=== PATIENT | female | born 1950 | race Caucasian/White ===

== ENCOUNTER 2020-09-01 08:26 | Inpatient (IN) ==
[2020-09-01] MEDS ORDERED: MIDAZOLAM HCL 1 MG/ML 2ML VIAL ONE (08:31)
[2020-09-01] MEDS ORDERED: niCARdipine HCL INJ 2.5 MG/ML 10 ML AMP ONE (08:31)
[2020-09-01] MEDS ORDERED: HEPARIN (PORCINE) 1000 UNIT/ML 10 ML (CATH LAB USE ONLY) ONE (08:31)
[2020-09-01] MEDS ORDERED: NITROGLYCERIN/D5W 100MCG/ML 20ML SYR ONE (08:32)
[2020-09-01] MEDS ORDERED: fentaNYL citrate 100 MCG/2 ML VIAL ONE (08:32)
[2020-09-01] MEDS ORDERED: ATROPINE SULFATE 0.1 MG/ML 10ML SYR IV ONE (08:36)
--- NOTE | 2020-09-01 08:49 | Pre Anesthesia Assessment ---
Date of Service September 01, 2020 Pre Sedation Assessment Vital Signs Temp Pulse Resp BP Pulse Ox 09/01/20 08:34 100 09/01/20 08:32 100 09/01/20 08:22 98.2 F 119 H 20 146/107 H 100 Cardiovascular RRR, no murmur, no edema Respiratory normal respiratory effort, lungs clear to auscultation Pre-Sedation Airway Assessment Smoking Status: Former smoker Hx Sleep Apnea: No Hx Difficult Intubation: No Short, Thick Neck: No Thyromental Distance: > or= 3.5 Finger Breadths Oral Cavity: + WNL Mallampati Class: III ASA: ASA3 Procedure Planning Contraindications for Sedation: none Current Medications Reviewed: Yes Notes The planned sedation has been discussed with the patient. Informed Consent was obtained. I have identified the patient, determined the appropriateness of sedation and have assessed the patient immediately prior to the procedure. All medicine(s) and interventions are by my order.
--- NOTE | 2020-09-01 08:53 | Cardiology Consultation ---
Date of Consultation September 01, 2020 Assessment & Plan (1) ACS (acute coronary syndrome): Presentation concerning for ACS with transient inferior ST elevations and recommend proceeding with urgent cardiac catheterization and likely primary PCI. No apparent contraindications to procedure. Discussed risks, benefits, alternatives of procedure with patient and they are willing to proceed. Further recommendations pending findings of coronary angiography. History of Present Illness History of Present Illness 70-year-old woman here with chest tightness and ECG showing transient inferior ST elevation. Patient seen emergently in the ED after heart alert activated en route. Past cardiac history remarkable for recently diagnosed postop atrial fibrillation, currently on Eliquis. Cardiac risk factors include hypertension, tobacco abuse. Recently admitted to [facility] after a fall in the setting of longstanding issues with vertigo. Underwent left hip fracture repair 2 weeks ago. Currently admitted at [facility] for rehab. Yesterday with rehab developed chest tightness which resolved overnight. This morning again had chest tightness and was noted to be in A. fib with RVR to the 100s to 110s. Initial ECG on arrival with EMS showed inferior ST elevations. On subsequent ECGs ST elevations have resolved. Patient with minimal chest discomfort on arrival, hemodynamically stable. Converted to sinus rhythm in ED. Allergies Allergy/AdvReac Type Severity Reaction Status Date / Time No Known Allergies Allergy Unverified 09/01/20 08:43 Home Medications Medication Instructions Recorded Confirmed Type apixaban 5 mg PO BID 09/01/20 09/01/20 History cholecalciferol (vitamin D3) 50 mcg PO QAM 09/01/20 09/01/20 History [Vitamin D3] cyclobenzaprine 5 mg PO TID PRN 09/01/20 09/01/20 History diltiazem HCl 360 mg PO QAM 09/01/20 09/01/20 History docusate sodium 100 mg PO BID 09/01/20 09/01/20 History folic acid 1 mg PO QAM 09/01/20 09/01/20 History hydrocodone-acetaminophen 1 tab PO Q4H PRN 09/01/20 09/01/20 History lidocaine [Lidoderm] 2 patch TOPICAL QAM 09/01/20 09/01/20 History lorazepam 1 mg PO HS PRN 09/01/20 09/01/20 History losartan 100 mg PO QAM 09/01/20 09/01/20 History meclizine 25 mg PO TID 09/01/20 09/01/20 History metoprolol tartrate 75 mg PO Q12H 09/01/20 09/01/20 History multivitamin with minerals 1 tab PO QAM 09/01/20 09/01/20 History naloxone 4 mg INTRANASAL UD 09/01/20 09/01/20 History nicotine 1 patch TRANSDERMAL QAM 09/01/20 09/01/20 History omega 2-gob-pqw-fish oil [Fish Oil] 1 cap PO TID 09/01/20 09/01/20 History pantoprazole 40 mg PO DAILYBB 09/01/20 09/01/20 History thiamine HCl (vitamin B1) 100 mg PO QAM 09/01/20 09/01/20 History urea 1 packet PO QAM 09/01/20 09/01/20 History Patient History Social History Smoking Status: Former smoker Feels Safe at Home: Yes Review of Systems Review of Systems: All systems reviewed & are unremarkable except as noted in HPI & below Physical Exam Physical Exam: General: Comfortable HEENT: Sclerae anicteric, Mask in place Lungs: Clear to auscultation bilaterally Cardiac: Regular rate and rhythm, no murmurs Vascular: 2+ radial Abdomen: Soft, nontender Extremities: Well perfused, trace bilateral edema Neuro: Nonfocal Psych: Alert orient x3, normal affect and mood Results & Data ([facility]) Vital Signs (Past 12 Hours) Vital Signs Temp Pulse Resp BP Pulse Ox 09/01/20 08:34 100 09/01/20 08:32 100 09/01/20 08:22 98.2 F 119 H 20 146/107 H 100 PG Care Time/CCT Total # of Minutes Spent Total Time Spent with Patient: Total time spent is greater than 50% in coordination of care (as documented) at patient's floor/unit and/or counseling patient: Coding Level of Care Code 92657 Initial Inpt Care Lvl 3 Diagnoses ACS (acute coronary syndrome) I24.9
[2020-09-01 08:58] LABS: Basophils # (auto) 0.02 K/uL (0-0.2); Basophils % (auto) 0.3 %; Eosinophils # (auto) 0.06 K/uL (0-0.5); Eosinophils % (auto) 0.8 %; Hematocrit (blood only) 30.6 % (37-47); Hemoglobin 10.6 g/dL (12.0-16.0); Immature Granulocytes # (auto) 0.01 K/uL (0.00-0.02); Immature Granulocytes % (auto) 0.1 %; Lymphocytes # (auto) 1.08 K/uL (1.2-3.4); Lymphocytes % (auto) 13.7 %; Mean Corpuscular Hemoglobin 35.1 pg (25-34); Mean Corpuscular Hgb Conc 34.6 g/dL (32-36); Mean Corpuscular Volume 101.3 fL (80-100); Mean Platelet Volume 8.6 fL (7.4-10.4); Monocytes # (auto) 0.67 K/uL (0.11-0.59); Monocytes % (auto) 8.5 %; Neutrophils # (auto) 6.02 K/uL (1.4-6.5); Neutrophils % (auto) 76.6 %; Platelet Count 588 K/uL (130-400); RDW Coefficient of Variation 13.6 % (11.5-14.5); RDW Standard Deviation 50.6 fL (36.4-46.3); Red Blood Count 3.02 M/uL (4.2-5.4); White Blood Count 7.86 K/uL (4.8-10.8)
[2020-09-01 09:08] LABS: INR 1.1 (0.9-1.1); Partial Thromboplastin Time 26.5 Seconds (21.0-31.0); Prothrombin Time 10.7 Seconds (9.0-12.0)
[2020-09-01 09:18] LABS: Albumin Level 3.5 gm/dl (3.4-5.0); BUN Creatinine Ratio 24.2 (10-20); Calcium 9.7 mg/dl (8.5-10.1); Est GFR (African American) 77.2; Est GFR (Non-African American) 66.6; Magnesium 1.6 mg/dl (1.8-2.4); Potassium 4.1 mmol/L (3.5-5.1)
[2020-09-01] MEDS ORDERED: CLOPIDOGREL BISULFATE 300 MG TAB ONE (09:21)
[2020-09-01] MEDS ORDERED: ACETAMINOPHEN 325 MG TAB PO PRN (09:34)
[2020-09-01] MEDS ORDERED: ONDANSETRON INJ 2 MG/ML 2 ML VIAL IV PRN (09:34)
[2020-09-01] MEDS ORDERED: NITROGLYCERIN SL 0.4 MG/TAB TAB SL PRN (09:34)
[2020-09-01 09:44] LABS: Albumin Globulin Ratio 0.8 (0.9-2); Bilirubin,Total 1.1 mg/dl (0.2-1); Creatine Kinase MB 5.6 ng/ml (0.5-3.6); Globulin 4.2 gm/dl (2.5-4.0); Thyroid Stimulating Hormone 1.32 uIu/ml (0.300-4.500); Total Protein 7.7 gm/dl (6.4-8.2); Troponin I 1.35 ng/ml (0-0.045)
[2020-09-01] MEDS ORDERED: SODIUM CHLORIDE 0.9% 1000ML 1,000 ML IV SCH (09:45)
--- NOTE | 2020-09-01 10:04 | Post Anesthesia Assessment ---
Date of Service September 01, 2020 Post Sedation Assessment Vital Signs Temp Pulse Pulse Resp BP BP Pulse Ox 09/01/20 09:36 65 16 150/105 H 98 09/01/20 08:34 100 09/01/20 08:32 100 09/01/20 08:22 98.2 F 119 H 20 146/107 H 100 Recovery Score Activity: Moves 4 extremities Respiration: Deep Breath/Cough Circulation: +/-20% PreAnes Value Consciousness: Fully Awake Oxygen Saturation: > 92% On Room Air Post Anesthesia Score: 10 Discharge Sedation Level of Care: Fast Track Phase II Post Sedation Plan On clinical assessment, the patient appears to have tolerated the sedation without complications. Patient is recovering as anticipated. Patient will continue to be monitored by nursing and may be discharged when sedation discharge criteria are met per below protocol. Upon Completions of procedure up to 15 minutes continue every 5 minute vital signs and the P.A.R. score; then discharge to a Phase I or Fast Track to Phase II per the following guidelines: * Discharge Patient to appropriate Phase II area if PAR is 8 or greater or return to pre- procedure baseline. The post - procedure orders will be as directed. * If PAR score is less than 8 or not return to pre-procedure baseline then patient will follow Phase I monitoring till PAR is reached for Phase II. The Phase I may be done in procedure room or may call to secure a Phase I area. * If naloxone or flumazenil are used for reversal, hold in Phase I for continued monitoring from when last reversal dose was given for a minimum of 60 minutes or longer pending the nurse and/or physician discretion of patient condition before discharge to Phase II. Please call the Sedation Physician to re-evaluate and complete post-note for discharge to Phase II area. Do NOT discharge from procedure sedation or Phase 1 until post- sedation evaluation note is complete by procedure /sedation MD Sedation Discharge Instructions to be given to the patient at discharge to home.
--- NOTE | 2020-09-01 10:14 | History & Physical Report ---
Date of Service September 01, 2020 Assessment & Plan (1) ACS (acute coronary syndrome): This is a 70yo F with a PMH of HTN, paroxysmal A Fib, vertigo, chronic hyponatremia, recent fall with hip fracture s/p repair and other medical problems listed below who was brought in from [facility] as a heart alert and is s/p stent to mid-RCA. Heart alert with transient inferior ST elevations who is s/p single DEX to mid- RCA by Dr. Ritter In PCU for continued monitoring after procedure Loaded with clopidogrel 600 mg in Field Aide Recommendations per Dr. Ritter * Continue triple therapy with aspirin, clopidogrel, apixaban for 1 week then dual therapy with clopidogrel, apixaban for at least 1 year * Trend troponins until peak, Check Echo * Uptitrate beta-christel/ARB as BP allows * High-dose statin * Consult cardiac Rehab Planning to establish with [facility] cardiology prior to this event - consult placed (2) Paroxysmal A-fib: Developed in postoperative setting after hip fracture repair 2 weeks ago Given additional 75mg of PO Lopressor post stent placement by Dr. Cullen Appreciate further recommendations for medication mgmt (3) Chronic hyponatremia: Sodium at baseline 129. Continue to monitor with daily BMP (4) HTN (hypertension): Normotensive. Continue Lopressor, losartan (5) Hip fracture requiring operative repair: Recent surgical repair at [facility] 2 weeks ago Fall precautions Continue Flexeril, [place], Lidoderm patch PT/OT (6) Vertigo: Continue Metclizine Fall precautions DVT Ppx: Eliquis Code status: FULL PCP: Jaimie Dispo: Observation PCU. Discharge planning ordered Patient seen in collaboration with Dr. Pan. Please see addendum. History of Present Illness Chief Complaint: chest pain Primary Care Provider: [facility] This is a 70yo F with a PMH of HTN, paroxysmal A Fib, vertigo, chronic hyponatremia, recent fall with hip fracture s/p repair and other medical problems listed below who was brought in from [facility] as a HEART ALERT. Was recently admitted to [facility] 2 weeks ago after a fall resulting in left hip fracture s/p surgical repair. Was subsequently admitted to [facility] for rehab and has been participating in rehab. Developed chest pain yesterday during rehab that resolved overnight. Had chest tightness again this morning and EKG showed A fib with RVR in 110s. EMS was called and initial ECG revealed inferior ST elevations that resolved on subsequent ECGs. A fib had spontaneously resolved while in ED. Was taken to cardiac equipment operator/laborer as hear alert. Dr. Ritter performed PCI with single stent to mid-RCA lesion. Currently, patient is feeling much better.No lightheadedness or vertigo. Denies any chest pain, SOB, nausea or vomiting. No fever, chills, headache, abdominal pain, dysuria, diarrhea or constipation. Has not smoked for past 2 weeks or co nsumed any alcohol. Allergies Allergy/AdvReac Type Severity Reaction Status Date / Time No Known Allergies Allergy Unverified 09/01/20 08:43 Home Medications Medication Instructions Recorded Confirmed Type apixaban 5 mg PO BID 09/01/20 09/01/20 History cholecalciferol (vitamin D3) 50 mcg PO QAM 09/01/20 09/01/20 History [Vitamin D3] cyclobenzaprine 5 mg PO TID PRN 09/01/20 09/01/20 History diltiazem HCl 360 mg PO QAM 09/01/20 09/01/20 History docusate sodium 100 mg PO BID 09/01/20 09/01/20 History folic acid 1 mg PO QAM 09/01/20 09/01/20 History hydrocodone-acetaminophen 1 tab PO Q4H PRN 09/01/20 09/01/20 History lidocaine [Lidoderm] 2 patch TOPICAL QAM 09/01/20 09/01/20 History lorazepam 1 mg PO HS PRN 09/01/20 09/01/20 History losartan 100 mg PO QAM 09/01/20 09/01/20 History meclizine 25 mg PO TID 09/01/20 09/01/20 History metoprolol tartrate 75 mg PO Q12H 09/01/20 09/01/20 History multivitamin with minerals 1 tab PO QAM 09/01/20 09/01/20 History naloxone 4 mg INTRANASAL UD 09/01/20 09/01/20 History nicotine 1 patch TRANSDERMAL QAM 09/01/20 09/01/20 History omega 5-nrh-hfd-fish oil [Fish Oil] 1 cap PO TID 09/01/20 09/01/20 History pantoprazole 40 mg PO DAILYBB 09/01/20 09/01/20 History thiamine HCl (vitamin B1) 100 mg PO QAM 09/01/20 09/01/20 History urea 1 packet PO QAM 09/01/20 09/01/20 History Past Med/Surg History Medical History Chronic hyponatremia Hip fracture requiring operative repair HTN (hypertension) Paroxysmal A-fib Vertigo Surgical History Closed hip fracture requiring operative repair S/P cholecystectomy Family History Other Hypertension Social History Smoking Status: Former smoker Smoking End Date: 08/14/2020; Hx Alcohol Use: Yes Alcohol type: wine Alcohol Intake Frequency: 4 or More x per/Week Hx Substance Use: No Preferred Language: Thai Communication Ability: Effective Epidemiology Investigator Required: No Beliefs That Will Affect Care: None Current Living Situation: Rehab Current Living Situation Comment: Recent orthopedic insult Feels Safe at Home: Yes Safety Concerns: Feels Safe At This Time Review of Systems Review of Systems: At least ten systems reviewed and negative except as noted in the HPI. Physical Exam Physical Exam: Please see Dr. Pan's addendum for physical exam details. Results & Data Results & Data ([facility]) Vital Signs (Past 12 Hours) Vital Signs Temp Pulse Pulse Resp BP BP Pulse Ox 09/01/20 09:36 65 16 150/105 H 98 09/01/20 08:34 100 09/01/20 08:32 100 09/01/20 08:22 36.8 C 119 H 20 146/107 H 100 Laboratory Results Short CBC 09/01/20 Range/Units 08:34 WBC 7.86 (4.8-10.8) K/uL Hgb 10.6 L (12.0-16.0) g/dL Hct 30.6 L (37-47) % Plt Count 588 H (130-400) K/uL BMP 09/01/20 08:34 Sodium 129 L Potassium 4.1 Chloride 98 Carbon Dioxide 24 BUN 22 H Creatinine 0.89 Glucose 107 H Calcium 9.7 Cardiac Enzymes 09/01/20 Range/Units 08:34 Total Creatine Kinase 127 (26-192) U/L CK-MB (CK-2) 5.6 H (0.5-3.6) ng/ml Troponin I 1.350 H* (0-0.045) ng/ml Liver Function 09/01/20 Range/Units 08:34 Total Bilirubin 1.1 H (0.2-1) mg/dl AST 33 (15-37) U/L ALT 24 (12-78) U/L Alkaline Phosphatase 91 (45-117) U/L Albumin 3.5 (3.4-5.0) gm/dl Code Status & VTE Plan VTE Prophylaxis Plan VTE Prophylaxis will be ordered: Yes Supervising Physician Co-Signing Physician Notes History and physical exam performed by me, detailed by Natacha Chawla PA-C I am familiar with the patient who is a 70-year-old woman with history of hypertension, vertigo, chronic hyponatremia who recently had a fall with left hip fracture and was managed by me at [facility] and discharged to rehab. She presents today from [facility] rehab after developing chest pain initially yesterday with during rehab that lasted a few minutes described as chest tightness and another episode this during which she was evaluated by the physician at the rehab EKG was reported to be showing A. fib and transient inferior ST elevation. Patient was brought to the ER as a heart alert. She was taken to the Field Aide emergently and underwent coronary angiography which showed a high-grade mid RCA stenosis treated with drug-eluting stent. At the time of evaluation, patient had no complaints of chest pain or shortness of breath -ACS s/p RCA ROSALVA -Paroxysmal Afib -Chronic hyponatremia [place] Calciner recommendations appreciated. Discussed with income tax administrator Dr. Cullen. We will continue aspirin, Plavix and apixaban for now with plan to discontinue aspirin in 2 to 4 weeks. Patient is recently diagnosed of paroxysmal A. fib during last hospitalization at [facility] when she was started on apixaban and still has Zio patch. We will continue anticoagulation and patient will need to follow-up with cardiology outpatient to assess Zio patch/A. fib burden. We will continue to optimize meds per income tax administrator recommendation during hospitalization Check A1c and lipid contour sander sodium Continue fluid restriction 1500 cc per 24 hours and po daily urea sodium Other plans as detailed above
--- NOTE | 2020-09-01 10:15 | Cardiac Catheterization ---
[facility] Data: Divorce Attorney Cardiac Status Clinical evaluation leading to the procedure CAD Presenation: Non STEMI Anginal Classification: CCS IV Heart Failure: No Cardiogenic Shock within 24 Hours: No Cardiac Arrest within 24 Hours: No Imaging Studies Past 6 Months: Yes Stress Studies Past 6 Months: No Diagnostic Physicians Name: Garrick Ritter MD Status: Emergency Closure Device Percutaneous Entry Location: Radial Closure Device: Radial Band Recommendations: PCI without planned CABG PCI Indication: Immediate PCI for STEMI First Noted: First EKG Lesion Segment Name: Mid RCA Culprit Artery: Yes Stenosis Prior to Rx (%): 90 Chronic Total Occlusion: No IVUS: No Pre-Procedure ARMANDO Flow: 3 Previously Treated Lesion: No Lesion Complexity: Non-High/Non-C Lesion Length (mm): 20 Thrombus Present: Yes Bifurcation Lesion: No Guidewire Across Lesion: Stenosis Post-Procedure (%): 0 Post-Procedure ARMANDO Flow: 3 Devices(s) Deployed: Yes Yes Intraprocedure Events Significant Disection: No Perforation: No Cardiac Cath Procedure Full Procedure Date September 01, 2020 Pre-Procedure Diagnosis Pre-Procedure Diagnosis: STEMI AUC Score AUC Score: 9 Post-Procedure Diagnosis Post-Procedure Diagnosis: Severe CAD, Successful PCI and Normal Intracardiac Pressures Procedure(s) Performed Procedure(s) Performed: Coronary Angiography, Left Heart Cath and Drug Eluting Stent Field Captain Garrick Ritter MD Time Clock Repairer(s) Dread Estimated Blood Loss Estimated Blood Loss: 10 Medication(s) Medication(s): Clopidogrel, Fentanyl, Heparin, Lidocaine 1%, Nicardipine and Versed Summary of Findings Indication: STEMI/Heart Alert Access: 6Fr right radial artery Catheters: [place], JR4 guide, pigtail Findings: LM -normal caliber, luminal irregularities LAD -medium caliber, calcified, 30% mid segment disease, distal vessel wraps around apex without significant disease. Medium caliber D1 with 80% ostial stenosis Circumflex -small caliber, angulated takeoff, no significant disease RCA -dominant, large caliber vessel, 90% acute mid RCA stenosis. Distal vessel without significant disease. LVEDP -14 -- PCI -- Antithrombotic therapy: Heparin, clopidogrel Procedure: RCA cannulated with JR4 guide BMW wire passed across lesion into distal vessel Mid RCA lesion predilated with 3.0 compliant balloon Dilated lesion stented with 3.5 x 28 mm Xience drug-eluting stent Stent post-dilated with 4.0 noncompliant balloon Post procedure ARMANDO 3 flow, stent well expanded with minimal residual stenosis and no apparent cardiac complications. Arterial Closure: TR band Summary: 1. High risk NSTEMI with transient inferior ST elevations -- 90% acute mid RCA stenosis 2. Nonculprit single-vessel coronary artery disease -30 to 40% mid LAD, 80% ostial D1 3. Normal intracardiac filling pressure 4. Successful PCI of mid RCA with single drug-eluting stent (3.5 x 28 mm Xience; postdilated with 4.0 NC). Recommendations: Admit to PCU for continued monitoring Loaded with clopidogrel 600 mg in Divorce Attorney Continue triple therapy with aspirin, clopidogrel, apixaban for 1 week then dual therapy with clopidogrel, apixaban for at least 1 year. Trend troponins until peak, Check Echo Uptitrate beta-christel/ARB as BP allows High-dose statin Consult cardiac Rehab Hemodynamics Rest Ao:: 114/75/93 Final Ao: 152/93/119 LV: 149/14 Recommendations Recommendations: PCI without planned CABG Specimens Specimens: None Radiation Exposure (mGy) 1387 Contrast (mls) 100 Fluids (cc crystalloids) Fluids (cc crystalloids): 125 Drains Drains: None Anesthesia Moderate Procedural Complication(s) None Disposition PCU I attest to the content of the Intraoperative Record and any orders documented therein. Any exceptions are noted below. [facility] Card Cath Procedure Codes Cardiac Catheterization Procedure 1: Cardiovascular Cath Procedures: 92597 Coronaries and LHC (+/-LV) Moderate Sedation Procedure 1: Sedation/Anesthesia: 32661 Mod Sedation by the same physician;Init15 Min Child Age 5 & Up Stenting Procedure 1: Cardiovascular Stent Procedures: 86099 Perc transluminal revascularization of acute sub/total occl, aMI PG Care Time/CCT Total # of Minutes Spent Total Time Spent with Patient: Total time spent is greater than 50% in coordination of care (as documented) at patient's floor/unit and/or counseling patient:
--- NOTE | 2020-09-01 12:14 | Emergency Department Note ---
History of Present Illness General Chief Complaint: Heart Alert History of Present Illness Provider Complaint: chest pain Onset (ago): day(s) 1 Duration: intermittent Onset: during exertion Pain Location: substernal Pain Radiation: none Severity: mild Current Pain Intensity: 1 Quality: + tightness and + aching Relieved By: + nothing Exacerbated By: + nothing Context: + recent surgery (Recent hip fracture) Associated symptoms: no nausea, no vomiting, no syncope, no palpitations, no fever and no leg swelling 70-year-old female from [facility]. Patient reports chest pain. Pain began yesterday while she was doing her rehab for her recent hip fracture. Pain is mild. She rates of 1 out of 10 currently. No radiation of the pain. No difficulty breathing at this time. Home Medications Medication Instructions Recorded Confirmed Type apixaban 5 mg PO BID 09/01/20 09/01/20 History cholecalciferol (vitamin D3) 50 mcg PO QAM 09/01/20 09/01/20 History [Vitamin D3] cyclobenzaprine 5 mg PO TID PRN 09/01/20 09/01/20 History diltiazem HCl 360 mg PO QAM 09/01/20 09/01/20 History docusate sodium 100 mg PO BID 09/01/20 09/01/20 History folic acid 1 mg PO QAM 09/01/20 09/01/20 History hydrocodone-acetaminophen 1 tab PO Q4H PRN 09/01/20 09/01/20 History lidocaine [Lidoderm] 2 patch TOPICAL QAM 09/01/20 09/01/20 History lorazepam 1 mg PO HS PRN 09/01/20 09/01/20 History losartan 100 mg PO QAM 09/01/20 09/01/20 History meclizine 25 mg PO TID 09/01/20 09/01/20 History metoprolol tartrate 75 mg PO Q12H 09/01/20 09/01/20 History multivitamin with minerals 1 tab PO QAM 09/01/20 09/01/20 History naloxone 4 mg INTRANASAL UD 09/01/20 09/01/20 History nicotine 1 patch TRANSDERMAL QAM 09/01/20 09/01/20 History omega 1-uzh-yaa-fish oil [Fish Oil] 1 cap PO TID 09/01/20 09/01/20 History pantoprazole 40 mg PO DAILYBB 09/01/20 09/01/20 History thiamine HCl (vitamin B1) 100 mg PO QAM 09/01/20 09/01/20 History urea 1 packet PO QAM 09/01/20 09/01/20 History Allergies Allergy/AdvReac Type Severity Reaction Status Date / Time No Known Allergies Allergy Unverified 09/01/20 08:43 Past Med/Surg History Medical History Chronic hyponatremia Hip fracture requiring operative repair HTN (hypertension) Paroxysmal A-fib Vertigo Surgical History Closed hip fracture requiring operative repair S/P cholecystectomy Family History Other Hypertension Social History Smoking Status: Former smoker Smoking End Date: 08/14/2020; Hx Alcohol Use: Yes Alcohol type: wine Alcohol Intake Frequency: 4 or More x per/Week Hx Substance Use: No Preferred Language: Polish Communication Ability: Effective Tank Officer Required: No Beliefs That Will Affect Care: None Current Living Situation: Rehab Current Living Situation Comment: Recent orthopedic insult Feels Safe at Home: Yes Safety Concerns: Feels Safe At This Time Review of Systems A total of 10 systems reviewed and were otherwise negative Physical Exam Vital Signs Vital Signs - 24 hr 09/01/20 08:22 09/01/20 08:32 09/01/20 08:34 Temperature 36.8 C Temperature Source Oral Pulse Rate 119 H Pulse Rate [Left Apical] Pulse Rhythm [Left Apical] Pulse Strength [Left Apical] Respiratory Rate 20 Respiratory Effort / Characteristics Non-Labored Spontaneous Respiratory Depth Normal Respiratory Pattern Regular Blood Pressure 146/107 H Blood Pressure [Left Arm] Blood Pressure Mean 120 Blood Pressure Mean [Left Arm] Blood Pressure Position Lying Blood Pressure Position [Left Arm] Pulse Oximetry 100 100 100 Oxygen Delivery Method Room Air Room Air Room Air Sepsis Recent Fever Within 48 Hours No Sepsis New/Unexplained Change in Mental Status N/A Sepsis Action Taken by Nursing No Action Required 09/01/20 08:56 09/01/20 09:36 Temperature Temperature Source Pulse Rate Pulse Rate [Left Apical] 65 Pulse Rhythm [Left Apical] Regular Pulse Strength [Left Apical] Normal Respiratory Rate 16 Respiratory Effort / Characteristics Non-Labored Respiratory Depth Normal Respiratory Pattern Regular Blood Pressure Blood Pressure [Left Arm] 150/105 H Blood Pressure Mean Blood Pressure Mean [Left Arm] 120 Blood Pressure Position Blood Pressure Position [Left Arm] Lying Pulse Oximetry 98 Oxygen Delivery Method Room Air Room Air Sepsis Recent Fever Within 48 Hours Sepsis New/Unexplained Change in Mental Status Sepsis Action Taken by Nursing Physical Exam GENERAL: She is oriented to person, place, and time. She appears well-developed and well-nourished. She does not appear distressed. HENT: Exam performed. -Head: Normocephalic and atraumatic. -Right Ear: External ear normal. No mastoid tenderness. -Left Ear: External ear normal. No mastoid tenderness. -Mouth/Throat: The oropharynx is clear and moist. No trismus in the jaw. No dental abscesses or uvula swelling. No oropharyngeal exudate or tonsillar abscesses. EYES: Conjunctivae and EOM are normal. Pupils are equal, round, and reactive to light. Right eye exhibits no discharge. Left eye exhibits no discharge. No scleral icterus. NECK: Normal range of motion. Neck supple. No JVD present. No spinous process tenderness present. No carotid bruit present. No rigidity. No tracheal deviation and normal range of motion present. No Brudzinski's sign and no Kernig's sign noted. CV: Normal rate, regular rhythm, normal heart sounds and intact distal pulses. There is no peripheral edema. Palpable radial pulses bue. PULM/CHEST: Effort normal and breath sounds normal. No respiratory distress. No stridor. She has no wheezes. She has no rales. -Chest Wall: She exhibits no tenderness. ABD: The abdomen is soft. Bowel sounds are normal. She has no distension. No mass is present. There is no tenderness. There is no rebound, no guarding, no Moura's sign and no tenderness at McBurney's point. Rovsig negative NEURO: Motor and sensation grossly intact PSYCH: She has a normal mood and affect. Behavior is normal. Judgment and thought content normal. Course Course 0720: Received a call from [facility] physician Dr. Vanessa. He states that he is the patient who was transferred there from [facility] after hip repair. He states that when he is examining the patient today he noticed that the patient had a irregular heart rhythm. He states he conducted an EKG which did show atrial fibrillation with a controlled ventricular rate. He also stated he thought that the patient was having ST elevations in the inferior lateral leads and became concerned the patient was having a heart attack. Per [facility], the patient was reporting mild chest pain at the time but yesterday during rehab session for her hip fracture she was having increasing diaphoresis and increasing chest pain. He states patient will be traveling to the emergency department via EMS. 0800:EKG sent by EMS at 0756 showed atrial fibrillation with a rate of 101. PA QRS and QTc intervals were within normal limits. There was ST elevation in leads II, III and aVF with mild reciprocal changes of ST depression in leads V2 and V3 and aVL. Heart alert was called on the patient. 0817: The patient was evaluated in room B1. A complete history and physical exam was performed Cardiac monitoring: An order was placed for continuous cardiac monitoring. The monitor shows a rate of 90-110 with atrial fibrillation rhythm 0850: Cardiology Dr. Ritter will take the patient to Full Service Supervisor. Administered Medications Sodium Chloride (Nss 1000ml) 1,000 mls @ 100 mls/hr IV .Q10H GILL Stop: 09/01/20 14:44 Last Admin: 09/01/20 11:19 Dose: 100 mls/hr Documented by: [id number] Discontinued Medications Atropine Sulfate (Atropine Sulfate 0.1 Mg/Ml 10ml Syr) Confirm Administered Dose 1 mg IV .STK-MED ONE Stop: 09/01/20 08:37 Last Admin: 09/01/20 09:32 Dose: Not Given Documented by: [id number] Clopidogrel Bisulfate (Clopidogrel Bisulfate 300 Mg Tab) Confirm Administered Dose 600 mg .ROUTE .STK-MED ONE Stop: 09/01/20 09:22 Last Admin: 09/01/20 09:32 Dose: 600 mg Documented by: [id number] Fentanyl Citrate (Fentanyl Citrate 100 Mcg/2 Ml Vial) Confirm Administered Dose 100 mcg .ROUTE .STK-MED ONE Stop: 09/01/20 08:33 Last Admin: 09/01/20 09:31 Dose: 25 mcg Documented by: [id number] Heparin Sodium (Porcine) (Heparin (Porcine) 1000 Unit/Ml 10 Ml (Full Service Supervisor Use Only)) Confirm Administered Dose 10,000 units .ROUTE .STK-MED ONE Stop: 09/01/20 08:32 Last Admin: 09/01/20 09:27 Dose: 9,000 units Documented by: [id number] Heparin Sodium/Sodium Chloride (Heparin In Nss Infusion 1000 Unit/500 Ml (2 U/Ml) Bag) Confirm Administered Dose 3,000 units IV .STK-MED ONE Stop: 09/01/20 08:33 Last Admin: 09/01/20 09:31 Dose: 3,000 units Documented by: [id number] Midazolam HCl (Midazolam Hcl 1 Mg/Ml 2ml Vial) Confirm Administered Dose 2 mg .ROUTE .STK-MED ONE Stop: 09/01/20 08:32 Last Admin: 09/01/20 09:30 Dose: 1 mg Documented by: [id number] Nicardipine HCl (Nicardipine Hcl Inj 2.5 Mg/Ml 10 Ml Amp) Confirm Administered Dose 25 mg .ROUTE .STK-MED ONE Stop: 09/01/20 08:32 Last Admin: 09/01/20 09:26 Dose: 25 mg Documented by: [id number] Nitroglycerin/Dextrose (Nitroglycerin/D5w 100mcg/Ml 20ml Syr) Confirm Administered Dose 2,000 mcg .ROUTE .STK-MED ONE Stop: 09/01/20 08:33 Last Admin: 09/01/20 09:31 Dose: 2,000 mcg Documented by: [id number] Medical Decision Making Laboratory Data Result diagrams: 09/01/20 08:34 09/01/20 08:34 Labs: Lab Results 09/01/20 09/01/20 09/01/20 Range/Units 08:31 08:31 08:34 WBC 7.86 (4.8-10.8) K/uL RBC 3.02 L (4.2-5.4) M/uL Hgb 10.6 L (12.0-16.0) g/dL Hct 30.6 L (37-47) % MCV 101.3 H (80-100) fL MCH 35.1 H (25-34) pg MCHC 34.6 (32-36) g/dL RDW Std Deviation 50.6 H (36.4-46.3) fL RDW Coeff of Luis 13.6 (11.5-14.5) % Plt Count 588 H (130-400) K/uL MPV 8.6 (7.4-10.4) fL Immature Gran % (Auto) 0.1 % Neut % (Auto) 76.6 % Lymph % (Auto) 13.7 % [place] % (Auto) 8.5 % Eos % (Auto) 0.8 % Baso % (Auto) 0.3 % Neut # (Auto) 6.02 (1.4-6.5) K/uL Lymph # (Auto) 1.08 L (1.2-3.4) K/uL [place] # (Auto) 0.67 H (0.11-0.59) K/uL Eos # (Auto) 0.06 (0-0.5) K/uL Baso # (Auto) 0.02 (0-0.2) K/uL Immature Gran # (Auto) 0.01 (0.00-0.02) K/uL PT (9.0-12.0) Seconds INR (0.9-1.1) APTT (21.0-31.0) Seconds PTT Ratio Activ Coag Time Kaolin (94-140) SECONDS Sodium (136-145) mmol/L Potassium (3.5-5.1) mmol/L Chloride (98-107) mmol/L Carbon Dioxide (21-32) mmol/L Anion Gap (3-11) BUN (7-18) mg/dl Creatinine (0.6-1.2) mg/dl Est Cr Clr Drug Dosing ml/min Est GFR ( Amer) Est GFR (Non-Af Amer) BUN/Creatinine Ratio (10-20) Glucose (70-99) mg/dl Calcium (8.5-10.1) mg/dl Magnesium (1.8-2.4) mg/dl Total Bilirubin (0.2-1) mg/dl AST (15-37) U/L ALT (12-78) U/L Alkaline Phosphatase (45-117) U/L Total Creatine Kinase (26-192) U/L CK-MB (CK-2) (0.5-3.6) ng/ml CK/CKMB % Calc (0-3.0) Troponin I (0-0.045) ng/ml Total Protein (6.4-8.2) gm/dl Albumin (3.4-5.0) gm/dl Globulin (2.5-4.0) gm/dl Albumin/Globulin Ratio (0.9-2) Lipase (73-393) U/L TSH (0.300-4.500) uIu/ml COVID-19 [facility] SARS-[facility]-2, RNA, NAAT NEGATIVE (NEGATIVE) 09/01/20 09/01/20 09/01/20 Range/Units 08:34 08:34 09:13 WBC (4.8-10.8) K/uL RBC (4.2-5.4) M/uL Hgb (12.0-16.0) g/dL Hct (37-47) % MCV (80-100) fL MCH (25-34) pg MCHC (32-36) g/dL RDW Std Deviation (36.4-46.3) fL RDW Coeff of Luis (11.5-14.5) % Plt Count (130-400) K/uL MPV (7.4-10.4) fL Immature Gran % (Auto) % Neut % (Auto) % Lymph % (Auto) % [place] % (Auto) % Eos % (Auto) % Baso % (Auto) % Neut # (Auto) (1.4-6.5) K/uL Lymph # (Auto) (1.2-3.4) K/uL [place] # (Auto) (0.11-0.59) K/uL Eos # (Auto) (0-0.5) K/uL Baso # (Auto) (0-0.2) K/uL Immature Gran # (Auto) (0.00-0.02) K/uL PT 10.7 (9.0-12.0) Seconds INR 1.1 (0.9-1.1) APTT 26.5 (21.0-31.0) Seconds PTT Ratio 1.0 Activ Coag Time Kaolin 252 H (94-140) SECONDS Sodium 129 L (136-145) mmol/L Potassium 4.1 (3.5-5.1) mmol/L Chloride 98 (98-107) mmol/L Carbon Dioxide 24 (21-32) mmol/L Anion Gap 7.0 (3-11) BUN 22 H (7-18) mg/dl Creatinine 0.89 (0.6-1.2) mg/dl Est Cr Clr Drug Dosing 59.0 ml/min Est GFR ( Amer) 77.2 Est GFR (Non-Af Amer) 66.6 BUN/Creatinine Ratio 24.2 H (10-20) Glucose 107 H (70-99) mg/dl Calcium 9.7 (8.5-10.1) mg/dl Magnesium 1.6 L (1.8-2.4) mg/dl Total Bilirubin 1.1 H (0.2-1) mg/dl AST 33 (15-37) U/L ALT 24 (12-78) U/L Alkaline Phosphatase 91 (45-117) U/L Total Creatine Kinase 127 (26-192) U/L CK-MB (CK-2) 5.6 H (0.5-3.6) ng/ml CK/CKMB % Calc 4.4 H (0-3.0) Troponin I 1.350 H* (0-0.045) ng/ml Total Protein 7.7 (6.4-8.2) gm/dl Albumin 3.5 (3.4-5.0) gm/dl Globulin 4.2 H (2.5-4.0) gm/dl Albumin/Globulin Ratio 0.8 L (0.9-2) Lipase 763 H (73-393) U/L TSH 1.320 (0.300-4.500) uIu/ml COVID-19 Eval Order SARS-CoV-2, RNA, NAAT (NEGATIVE) ECG Data Indication: chest pain Rate (beats per minute): 100 Rhythm: normal sinus Findings: no ST depression, no ST elevation and no prolonged QT [facility] Narrative 0720: Received a call from [facility] physician Dr. Vanessa. He states that he is the patient who was transferred there from [facility] after hip repair. He states that when he is examining the patient today he noticed that the patient had a irregular heart rhythm. He states he conducted an EKG which did show atrial fibrillation with a controlled ventricular rate. He also stated he thought that the patient was having ST elevations in the inferior lateral leads and became concerned the patient was having a heart attack. Per [facility] physician, the patient was reporting mild chest pain at the time but yesterday during rehab session for her hip fracture she was having increasing diaphoresis and increasing chest pain. He states patient will be traveling to the emergency department via EMS. 0800:EKG sent by EMS at 0756 showed atrial fibrillation with a rate of 101. PA QRS and QTc intervals were within normal limits. There was ST elevation in leads II, III and aVF with mild reciprocal changes of ST depression in leads V2 and V3 and aVL. Heart alert was called on the patient. 0817: The patient was evaluated in room B1. A complete history and physical exam was performed Cardiac monitoring: An order was placed for continuous cardiac monitoring. The monitor shows a rate of 90-110 with atrial fibrillation rhythm 0850: Cardiology Dr. Ritter will take the patient to Full Service Supervisor. Impression & Plan ST elevation (STEMI) myocardial infarction Critical Care Time Critical Care Time: Yes Total Critical Care Time: 38 I have personally spent greater than 38 minutes of critical care time in the direct management of this patient. This includes bedside care, interpretation of diagnostic studies, and testing, discussion with consultants, patient, and family members, and other required patient management activities. This 38 minutes is in excess of all separately billable procedures. Discharge Plan Visit Data Chief Complaint: Heart Alert ED Provider: Zeus Villagran Discharge Problem: ST elevation (STEMI) myocardial infarction Patient Disposition: Still a Patient Discharge Instructions Interventions: ED Discharge Assessment Last Done: 09/01/20 08:56 Discharge Problem: ST elevation (STEMI) myocardial infarction Qualifiers: Involved coronary artery: unspecified coronary artery Qualified Code(s): I21.3 - ST elevation (STEMI) myocardial infarction of unspecified site
--- NOTE | 2020-09-01 12:27 | Cardiology Consultation ---
Date of Consultation September 01, 2020 Assessment & Plan (1) ACS (acute coronary syndrome): Patient is a 70-year-old female presented with acute coronary syndrome with chest pain tachypalpitations and transient ST elevation. She was taken to the Emergency Medical Service Manager and underwent coronary invention of the mid right coronary artery with drug-eluting stent successfully. Patient without prior history of known coronary disease but history of longstanding hypertension as well as recently observed paroxysmal atrial fibrillation in the postoperative setting. Patient anticoagulated with apixaban Recommendations as previously outlined by Dr. Ritter. Plan clopidogrel plus apixaban for anticoagulant and antiplatelet therapy. Discontinue aspirin 2-4 Ultimate goals however will require increased beta-christel therapy for hypertension and arrhythmia control. We will give metoprolol tartrate 75 mg p.o. now. Depending on blood pressure response and echo findings may consider resuming diltiazem this evening. Appears medications have been titrated upward since hospitalization at [place] with labile blood pressures and arrhythmias noted Patient has scheduled follow-up with [facility] cardiology [place] on 09/22/2020 (2) Paroxysmal A-fib: (3) HTN (hypertension): (4) Chronic hyponatremia: History of Present Illness Reason for Consultation: Acute coronary syndrome, paroxysmal A. fib Requesting Physician: Dr Pan Attending Physician: Ling Pan MD History of Present Illness Patient is a 70-year-old female admitted with acute coronary syndrome paroxysmal atrial fibrillation this morning. She underwent emergent coronary invention the mid right coronary artery. Her underlying cardiac and medical issues include 1. Longstanding hypertension on multiple drug regimen 2. Severe vertigo/vestibular disease per records and patient with marked gait instability 3. Mechanical fall with left hip fracture 08/16/2020 status post ORIF 4. Recent documentation of paroxysmal atrial fibrillation 5. Hyponatremia Patient presents now with recent complex history. Notes significant difficulties with it with dizziness and vertigo of at least 6 months duration with gait instability. She noted a mechanical fall with left hip fracture on 08/16/2020 and underwent surgical repair at [facility]. Clinical course there was notable for postoperative delirium and an episode of atrial fibrillation with spontaneous conversion. Troponin levels were mildly elevated on initial admission but no ischemic EKG findings noted She has since been recovering at [facility] rehab. Yesterday she noted transient left chest tightness that recurred once again this morning with a sense of heart pounding. 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 She was taken to the Emergency Medical Service Manager emergently and underwent coronary angiography demonstrating a high-grade mid RCA stenosis treated with successful insertion of drug-eluting stent. She is referred now for ongoing care. Patient currently without chest pain or shortness of breath. Notes no fevers chills or productive cough. Has had some increased urinary frequency recently but otherwise no change in her usual complaints. Has been taking anticoagulants and medications as prescribed but does not administer her own medications currently. Uncertain of medications received yet today. She denies any prior history of cardiac disease rheumatic fever scarlet fever heart murmur. Patient unaware of her lipid status. Per review of outpatient records she had previously undergone assessments for palpitations 15 years ago Appetite is only fair and she notes 35 pound weight loss over the past 1 years time. Was a recent smoker discontinued approximately 2 weeks ago No family history of premature coronary disease Allergies Allergy/AdvReac Type Severity Reaction Status Date / Time No Known Allergies Allergy Unverified 09/01/20 08:43 Home Medications Medication Instructions Recorded Confirmed Type apixaban 5 mg PO BID 09/01/20 09/01/20 History cholecalciferol (vitamin D3) 50 mcg PO QAM 09/01/20 09/01/20 History [Vitamin D3] cyclobenzaprine 5 mg PO TID PRN 09/01/20 09/01/20 History diltiazem HCl 360 mg PO QAM 09/01/20 09/01/20 History docusate sodium 100 mg PO BID 09/01/20 09/01/20 History folic acid 1 mg PO QAM 09/01/20 09/01/20 History hydrocodone-acetaminophen 1 tab PO Q4H PRN 09/01/20 09/01/20 History lidocaine [Lidoderm] 2 patch TOPICAL QAM 09/01/20 09/01/20 History lorazepam 1 mg PO HS PRN 09/01/20 09/01/20 History losartan 100 mg PO QAM 09/01/20 09/01/20 History meclizine 25 mg PO TID 09/01/20 09/01/20 History metoprolol tartrate 75 mg PO Q12H 09/01/20 09/01/20 History multivitamin with minerals 1 tab PO QAM 09/01/20 09/01/20 History naloxone 4 mg INTRANASAL UD 09/01/20 09/01/20 History nicotine 1 patch TRANSDERMAL QAM 09/01/20 09/01/20 History omega 3-yca-zgi-fish oil [Fish Oil] 1 cap PO TID 09/01/20 09/01/20 History pantoprazole 40 mg PO DAILYBB 09/01/20 09/01/20 History thiamine HCl (vitamin B1) 100 mg PO QAM 09/01/20 09/01/20 History urea 1 packet PO QAM 09/01/20 09/01/20 History Patient History Medical History Chronic hyponatremia Hip fracture requiring operative repair HTN (hypertension) Paroxysmal A-fib Vertigo Surgical History Closed hip fracture requiring operative repair S/P cholecystectomy Family History Other Hypertension Social History Smoking Status: Former smoker Smoking End Date: 08/14/2020; Hx Alcohol Use: Yes Alcohol type: wine Alcohol Intake Frequency: 4 or More x per/Week Hx Substance Use: No Preferred Language: Romanian Communication Ability: Effective Brake 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 Beliefs That Will Affect Care: None Current Living Situation: Rehab Current Living Situation Comment: Recent orthopedic insult Feels Safe at Home: Yes Safety Concerns: Feels Safe At This Time Results & Data ([facility]) Vital Signs (Past 12 Hours) Vital Signs Temp Pulse Pulse Resp BP BP Pulse Ox 09/01/20 11:45 93 H 16 130/87 100 09/01/20 11:30 93 H 16 134/88 100 09/01/20 11:21 89 16 150/105 H 97 09/01/20 11:15 95 H 16 150/105 H 100 09/01/20 11:00 36.6 C 84 16 134/87 98 09/01/20 09:36 65 16 150/105 H 98 09/01/20 08:34 100 09/01/20 08:32 100 09/01/20 08:22 36.8 C 119 H 20 146/107 H 100 Laboratory Results Laboratory Results - last 24 hr 09/01/20 09/01/20 09/01/20 08:31 08:31 08:34 WBC 7.86 RBC 3.02 L Hgb 10.6 L Hct 30.6 L MCV 101.3 H MCH 35.1 H MCHC 34.6 RDW Std Deviation 50.6 H RDW Coeff of Luis 13.6 Plt Count 588 H MPV 8.6 Immature Gran % (Auto) 0.1 Neut % (Auto) 76.6 Lymph % (Auto) 13.7 [place] % (Auto) 8.5 Eos % (Auto) 0.8 Baso % (Auto) 0.3 Neut # (Auto) 6.02 Lymph # (Auto) 1.08 L [place] # (Auto) 0.67 H Eos # (Auto) 0.06 Baso # (Auto) 0.02 Immature Gran # (Auto) 0.01 PT INR APTT PTT Ratio Activ Coag Time Kaolin Sodium Potassium Chloride Carbon Dioxide Anion Gap BUN Creatinine Est Cr Clr Drug Dosing Est GFR ( Amer) Est GFR (Non-Af Amer) BUN/Creatinine Ratio Glucose Calcium Magnesium Total Bilirubin AST ALT Alkaline Phosphatase Total Creatine Kinase CK-MB (CK-2) CK/CKMB % Calc Troponin I Total Protein Albumin Globulin Albumin/Globulin Ratio Lipase TSH COVID-19 Eval Order Covid19 IDNow [facility] SARS-CoV-2, RNA, NAAT NEGATIVE 09/01/20 09/01/20 09/01/20 08:34 08:34 09:13 WBC RBC Hgb Hct MCV MCH MCHC RDW Std Deviation RDW Coeff of Lusi Plt Count MPV Immature Gran % (Auto) Neut % (Auto) Lymph % (Auto) [place] % (Auto) Eos % (Auto) Baso % (Auto) Neut # (Auto) Lymph # (Auto) [place] # (Auto) Eos # (Auto) Baso # (Auto) Immature Gran # (Auto) PT 10.7 INR 1.1 APTT 26.5 PTT Ratio 1.0 Activ Coag Time Kaolin 252 H Sodium 129 L Potassium 4.1 Chloride 98 Carbon Dioxide 24 Anion Gap 7.0 BUN 22 H Creatinine 0.89 Est Cr Clr Drug Dosing 59.0 Est GFR ( Amer) 77.2 Est GFR (Non-Af Amer) 66.6 BUN/Creatinine Ratio 24.2 H Glucose 107 H Calcium 9.7 Magnesium 1.6 L Total Bilirubin 1.1 H AST 33 ALT 24 Alkaline Phosphatase 91 Total Creatine Kinase 127 CK-MB (CK-2) 5.6 H CK/CKMB % Calc 4.4 H Troponin I 1.350 H* Total Protein 7.7 Albumin 3.5 Globulin 4.2 H Albumin/Globulin Ratio 0.8 L Lipase 763 H TSH 1.320 COVID-19 Eval Order SARS-CoV-2, RNA, NAAT
[2020-09-01] MEDS: METOPROLOL TARTRATE 25 MG TAB PO SCH ×2 (12:30→20:03)
[2020-09-01] MEDS: HYDROCODONE/ACETAMOPHEN 5/325MG TAB PO PRN ×2 (12:57→21:39)
[2020-09-01] MEDS ORDERED: OMEGA-3 (PURIFIED FISH OIL) 1 GM CAP PO SCH (14:00)
[2020-09-01] MEDS: CYCLOBENZAPRINE HCL 5 MG TAB PO PRN ×2 (14:15→20:00)
[2020-09-01] MEDS: MECLIZINE HCL 25 MG TAB PO SCH ×2 (14:15→20:03)
[2020-09-01 15:38] LABS: Appearance Urine Clear (Clear); Bacteria Urine Automated Negative (Negative); Bilirubin Urine Negative (Negative); Blood Urine 3+ (Negative); Epithelial Cell Urine Auto >30 /lpf (0-5); Glucose Urine UA Negative (Negative); Ketones Urine Negative (Negative); Leukocyte Esterase Urine 1+ (Negative); Nitrite Urine Negative (Negative); Protein Urine Negative (Negative); RBC Urine Automated >30 /hpf (0-4); Specific Gravity Urine 1.023 (1.000-1.030); Urobilinogen Urine Negative (Negative); pH Urine 6.5 (4.5-7.5)
[2020-09-01 15:59] LABS: Color Urine Dark Yellow
[2020-09-01] MEDS: APIXABAN 5 MG TABLET PO SCH (20:04)
[2020-09-01] MEDS: DOCUSATE SODIUM 100 MG CAP PO SCH (20:04)
[2020-09-01] MEDS ORDERED: METOPROLOL TARTRATE 25 MG TAB PO SCH (21:00)
[2020-09-02] MEDS ORDERED: LORazepam 1 MG TAB PO STA (04:10)
[2020-09-02] MEDS: PANTOprazole 40 MG TAB PO SCH (05:59)
[2020-09-02 06:48] LABS: Basophils # (auto) 0.02 K/uL (0-0.2); Basophils % (auto) 0.3 %; Eosinophils # (auto) 0.11 K/uL (0-0.5); Eosinophils % (auto) 1.9 %; Hematocrit (blood only) 29.2 % (37-47); Hemoglobin 10.1 g/dL (12.0-16.0); Immature Granulocytes # (auto) 0.01 K/uL (0.00-0.02); Immature Granulocytes % (auto) 0.2 %; Lymphocytes # (auto) 1.25 K/uL (1.2-3.4); Lymphocytes % (auto) 21.7 %; Mean Corpuscular Hemoglobin 34.9 pg (25-34); Mean Corpuscular Hgb Conc 34.6 g/dL (32-36); Mean Platelet Volume 8.6 fL (7.4-10.4); Monocytes # (auto) 0.69 K/uL (0.11-0.59); Neutrophils # (auto) 3.67 K/uL (1.4-6.5); Neutrophils % (auto) 63.9 %; Platelet Count 511 K/uL (130-400); RDW Coefficient of Variation 13.3 % (11.5-14.5); RDW Standard Deviation 49.1 fL (36.4-46.3); Red Blood Count 2.89 M/uL (4.2-5.4); White Blood Count 5.75 K/uL (4.8-10.8)
--- NOTE | 2020-09-02 06:52 | Electrocardiogram Report ---
Test Reason : Blood Pressure : / mmHG Vent. Rate : 100 BPM Atrial Rate : 100 BPM P-R Int : 194 ms QRS Dur : 072 ms QT Int : 326 ms P-R-T Axes : 059 -37 -30 degrees QTc Int : 420 ms Poor data quality, interpretation may be adversely affected Normal sinus rhythm Left axis deviation Anterior infarct , age undetermined T wave abnormality, consider inferior ischemia Abnormal ECG No previous ECGs available Confirmed by Lopez Cardozo ([id number]) on 09/02/2020 6:52:17 AM Referred By: Confirmed By:Lopez Cardozo
--- NOTE | 2020-09-02 06:57 | Electrocardiogram Report ---
Test Reason : Blood Pressure : / mmHG Vent. Rate : 107 BPM Atrial Rate : 107 BPM P-R Int : 190 ms QRS Dur : 070 ms QT Int : 336 ms P-R-T Axes : 051 -46 -20 degrees QTc Int : 448 ms Poor data quality, interpretation may be adversely affected Sinus tachycardia Left axis deviation Anterior infarct (cited on or before 01-SEP-2020) T wave abnormality, consider inferior ischemia Abnormal ECG When compared with ECG of 01-SEP-2020 08:29, No significant change was found Confirmed by Lopez Cardozo ([id number]) on 09/02/2020 6:57:34 AM Referred By: [facility] Confirmed By:Lopez Cardozo
[2020-09-02] MEDS: LOSARTAN POTASSIUM 50 MG TAB PO SCH (07:17)
[2020-09-02] MEDS: THIAMINE HCL 100 MG TAB PO SCH (07:18)
[2020-09-02] MEDS: CHOLECALCIFEROL 1,000 UNITS 25 MCG TAB PO SCH (07:18)
[2020-09-02] MEDS: APIXABAN 5 MG TABLET PO SCH ×2 (07:19→20:03)
[2020-09-02] MEDS: ASPIRIN 81 MG ECTAB PO SCH (07:19)
[2020-09-02 07:20] LABS: BUN Creatinine Ratio 17.5 (10-20); Blood Urea Nitrogen 13 mg/dl (7-18); Calcium 9.6 mg/dl (8.5-10.1); Carbon Dioxide 20 mmol/L (21-32); Chloride 101 mmol/L (98-107); Cholesterol 169 mg/dl (0-200); Creatinine Clr Calc Pharmacy 66.4 ml/min; Est GFR (African American) 98.1; Est GFR (Non-African American) 84.6; Glucose 88 mg/dl (70-99); Potassium 3.8 mmol/L (3.5-5.1); Sodium 129 mmol/L (136-145); Triglycerides 118 mg/dl (0-150); VLDL Cholesterol 24 mg/dl
[2020-09-02] MEDS: ATORVASTATIN 40 MG TAB PO SCH (07:20)
[2020-09-02] MEDS: CEROVITE ADV FORMULA TAB PO SCH (07:21)
[2020-09-02] MEDS: METOPROLOL TARTRATE 25 MG TAB PO SCH (07:21)
[2020-09-02] MEDS: FOLIC ACID 1 MG TAB PO SCH (07:22)
[2020-09-02] MEDS: CLOPIDOGREL BISULFATE 75 MG TAB PO SCH (07:22)
[2020-09-02 07:23] LABS: Chol HDL Ratio 4; HDL Cholesterol 44 mg/dl; LDL Cholesterol Direct 113 mg/dl
[2020-09-02] MEDS: CYCLOBENZAPRINE HCL 5 MG TAB PO PRN ×2 (07:23→12:54)
[2020-09-02] MEDS: MECLIZINE HCL 25 MG TAB PO SCH ×3 (07:23→20:04)
[2020-09-02] MEDS: UREA (URE-NA) 15 GM PACK PO SCH (07:24)
[2020-09-02] MEDS: NICOTINE 21 MG/24 HR TDSY TD SCH (07:25)
[2020-09-02] MEDS: LIDOCAINE 5% 1 PATCH TD SCH (07:26)
[2020-09-02 07:28] LABS: Estimated Average Glucose 77 mg/dl; Hemoglobin A1C 4.3 % (4.5-5.6)
[2020-09-02] MEDS: DOCUSATE SODIUM 100 MG CAP PO SCH ×2 (07:41→20:04)
--- NOTE | 2020-09-02 09:17 | Hospitalist Progress Note ---
Date of Service September 02, 2020 Assessment & Plan (1) ACS (acute coronary syndrome): 70yo F with a PMH of HTN, paroxysmal A Fib, vertigo, chronic hyponatremia, recent fall with hip fracture s/p repair and other medical problems listed below who was brought in from [facility] as a heart alert Heart alert with transient inferior ST elevations who is s/p single DEX to mid- RCA by Dr. Ritter Loaded with clopidogrel 600 mg in Clinical Documentation Nurse Discussed with Datawarehouse Developer who recommend continuing triple therapy with Aspirin, clopidogrel and apixaban with plan to discontinue aspirin in 2-4 weeks and then continue clopidogrel and apixaban Will need clopidogrel, apixaban for at least 1 year Echo noted mod conc LVH, mild hypokinesis of inferior and inferior septal rubio, EF 55-60%, Grade III DD Continue atorvastatin Uptitrate metoprolol Datawarehouse Developer on board (2) Paroxysmal A-fib: Developed in postoperative setting after hip fracture repair 2 weeks ago Given additional 75mg of PO Lopressor post stent placement by Dr. Cullen Increased to 100mg po lopressor bid (3) Chronic hyponatremia: From SIADH Sodium at baseline 129. Continue to monitor with daily BMP Continue fluid restriction and po urea Na (4) HTN (hypertension): BP elevated this AM Will get losartan Will monitor and optimize BP control (5) Hip fracture requiring operative repair: Recent surgical repair at [facility] 2 weeks ago Fall precautions Continue Flexeril, Gilman, Lidoderm patch PT/OT (6) Vertigo: Continue Meclizine Fall precautions DVT Ppx: Eliquis Code status: FULL Admission and Anticipated Discharge Date Admission Date: September 01, 2020 Subjective Patient seen and examined No more chest pain. Denied palpitations/SOB/cough No fevers, chills, nausea, vomiting No abd pain, diarrhea Reports chronic intermittent vertigo Reports left hip pain from recent surgery Physical Exam Constitutional: + well hydrated; no acute distress Eyes: PERRL, conjunctivae normal, anicteric sclerae ENMT: external ear and nose normal, oropharynx normal Respiratory: normal respiratory effort, lungs clear to auscultation Cardiovascular: Rate/Rhythm: regular rhythm and + tachycardic Heart Sounds: normal S1 and normal S2 Gastrointestinal (Abdomen): normal bowel sounds, soft, nontender, no hepatosplenomegaly Musculoskeletal: Reports some pain with active ROM of left LE Neurologic: PERRL, EOMI, accommodation nl, no face palsy, no dysarthria Psychiatric: A+Ox3, euthymic affect Results & Data Results & Data ([facility]) Vital Signs (Past 12 Hours) Vital Signs Temp Pulse Pulse Resp BP BP Pulse Ox 09/02/20 08:00 112 H 09/02/20 07:19 37.0 C 103 H 20 163/116 H 99 09/02/20 04:17 36.4 C L 91 H 18 152/92 H 99 09/01/20 23:46 36.8 C 88 16 149/92 H 99 Pulse Ox 09/02/20 08:00 99 09/02/20 07:19 09/02/20 04:17 09/01/20 23:46 Laboratory Results Laboratory Results - last 24 hr 09/01/20 09/01/20 09/01/20 08:31 08:34 09:13 WBC RBC Hgb Hct MCV MCH MCHC RDW Std Deviation RDW Coeff of Luis Plt Count MPV Immature Gran % (Auto) Neut % (Auto) Lymph % (Auto) [place] % (Auto) Eos % (Auto) Baso % (Auto) Neut # (Auto) Lymph # (Auto) [place] # (Auto) Eos # (Auto) Baso # (Auto) Immature Gran # (Auto) Activ Coag Time Kaolin 252 H Sodium 129 L Potassium 4.1 Chloride 98 Carbon Dioxide 24 Anion Gap 7.0 BUN 22 H Creatinine 0.89 Est Cr Clr Drug Dosing 59.0 Est GFR ( Amer) 77.2 Est GFR (Non-Af Amer) 66.6 BUN/Creatinine Ratio 24.2 H Glucose 107 H Estimat Average Glucose Hemoglobin A1c Calcium 9.7 Magnesium 1.6 L Total Bilirubin 1.1 H AST 33 ALT 24 Alkaline Phosphatase 91 Total Creatine Kinase 127 CK-MB (CK-2) 5.6 H CK/CKMB % Calc 4.4 H Troponin I 1.350 H* Total Protein 7.7 Albumin 3.5 Globulin 4.2 H Albumin/Globulin Ratio 0.8 L Triglycerides Cholesterol LDL Cholesterol Direct LDL Cholesterol, Calc VLDL Cholesterol, Calc HDL Cholesterol Cholesterol/HDL Ratio Lipase 763 H TSH 1.320 Urine Color Urine Appearance Urine pH Ur Specific Kennedy Urine Protein Urine Glucose (UA) Urine Ketones Urine Blood Urine Nitrite Urine Bilirubin Urine Urobilinogen Ur Leukocyte Esterase Urine WBC (Auto) Urine RBC (Auto) U Hyaline Cast (Auto) U Epithel Cells (Auto) Urine Bacteria (Auto) SARS-CoV-2, RNA, NAAT NEGATIVE 09/01/20 09/01/20 09/01/20 15:15 15:34 21:36 WBC RBC Hgb Hct MCV MCH MCHC RDW Std Deviation RDW Coeff of Luis Plt Count MPV Immature Gran % (Auto) Neut % (Auto) Lymph % (Auto) [place] % (Auto) Eos % (Auto) Baso % (Auto) Neut # (Auto) Lymph # (Auto) [place] # (Auto) Eos # (Auto) Baso # (Auto) Immature Gran # (Auto) Activ Coag Time Kaolin Sodium Potassium Chloride Carbon Dioxide Anion Gap BUN Creatinine Est Cr Clr Drug Dosing Est GFR ( Amer) Est GFR (Non-Af Amer) BUN/Creatinine Ratio Glucose Estimat Average Glucose Hemoglobin A1c Calcium Magnesium Total Bilirubin AST ALT Alkaline Phosphatase Total Creatine Kinase CK-MB (CK-2) CK/CKMB % Calc Troponin I 3.150 H* 3.000 H* Total Protein Albumin Globulin Albumin/Globulin Ratio Triglycerides Cholesterol LDL Cholesterol Direct LDL Cholesterol, Calc VLDL Cholesterol, Calc HDL Cholesterol Cholesterol/HDL Ratio Lipase TSH Urine Color Dark Yellow Urine Appearance Clear Urine pH 6.5 Ur Specific [place] 1.023 Urine Protein Negative Urine Glucose (UA) Negative Urine Ketones Negative Urine Blood 3+ H Urine Nitrite Negative Urine Bilirubin Negative Urine Urobilinogen Negative Ur Leukocyte Esterase 1+ H Urine WBC (Auto) 10-30 H Urine RBC (Auto) >30 H U Hyaline Cast (Auto) 1-5 U Epithel Cells (Auto) >30 H Urine Bacteria (Auto) Negative SARS-CoV-2, RNA, NAAT 09/02/20 09/02/20 09/02/20 06:21 06:21 06:21 WBC 5.75 RBC 2.89 L Hgb 10.1 L Hct 29.2 L MCV 101.0 H MCH 34.9 H MCHC 34.6 RDW Std Deviation 49.1 H RDW Coeff of Luis 13.3 Plt Count 511 H MPV 8.6 Immature Gran % (Auto) 0.2 Neut % (Auto) 63.9 Lymph % (Auto) 21.7 [place] % (Auto) 12.0 Eos % (Auto) 1.9 Baso % (Auto) 0.3 Neut # (Auto) 3.67 Lymph # (Auto) 1.25 [place] # (Auto) 0.69 H Eos # (Auto) 0.11 Baso # (Auto) 0.02 Immature Gran # (Auto) 0.01 Activ Coag Time Kaolin Sodium 129 L Potassium 3.8 Chloride 101 Carbon Dioxide 20 L Anion Gap 8.0 BUN 13 Creatinine 0.73 Est Cr Clr Drug Dosing 66.4 Est GFR ( Amer) 98.1 Est GFR (Non-Af Amer) 84.6 BUN/Creatinine Ratio 17.5 Glucose 88 Estimat Average Glucose 77 Hemoglobin A1c 4.3 L Calcium 9.6 Magnesium Total Bilirubin AST ALT Alkaline Phosphatase Total Creatine Kinase CK-MB (CK-2) CK/CKMB % Calc Troponin I Total Protein Albumin Globulin Albumin/Globulin Ratio Triglycerides 118 Cholesterol 169 LDL Cholesterol Direct 113 LDL Cholesterol, Calc Not Reportable VLDL Cholesterol, Calc 24 HDL Cholesterol 44 Cholesterol/HDL Ratio 4 Lipase TSH Urine Color Urine Appearance Urine pH Ur Specific Kennedy Urine Protein Urine Glucose (UA) Urine Ketones Urine Blood Urine Nitrite Urine Bilirubin Urine Urobilinogen Ur Leukocyte Esterase Urine WBC (Auto) Urine RBC (Auto) U Hyaline Cast (Auto) U Epithel Cells (Auto) Urine Bacteria (Auto) SARS-CoV-2, RNA, NAAT
[2020-09-02] MEDS ORDERED: METOPROLOL TARTRATE 25 MG TAB PO STA (09:54)
[2020-09-02] MEDS: HYDROCODONE/ACETAMOPHEN 5/325MG TAB PO PRN ×3 (10:34→20:01)
--- NOTE | 2020-09-02 13:30 | Cardiology Progress Note ---
Date of Service September 02, 2020 Assessment & Plan (1) ACS (acute coronary syndrome): Patient is a 70-year-old female presented with acute coronary syndrome with chest pain tachypalpitations and transient ST elevation. She was taken to the Fingernail Technician and underwent coronary invention of the mid right coronary artery with drug-eluting stent successfully. Patient without prior history of known coronary disease but history of longstanding hypertension as well as recently observed paroxysmal atrial fibrillation in the postoperative setting. Patient anticoagulated with apixaban Recommendations as previously outlined by Dr. Ritter. Plan clopidogrel plus apixaban for anticoagulant and antiplatelet therapy. Discontinue aspirin 2-4 weeks Patient doing well overnight. Significant discomfort due to chronic hip and back pain. Has remained in sinus rhythm. Remains hypertensive despite metoprolol being increased to 100 mg twice daily and losartan 100 mg daily. We will add amlodipine 5 mg daily onto her regimen for further control. Continue to monitor on telemetry overnight. Possible DC to home on the . Patient has scheduled follow-up with [facility] cardiology [place] on 09/22/2020 (2) Paroxysmal A-fib: (3) HTN (hypertension): (4) Chronic hyponatremia: Admission and Anticipated Discharge Date Admission Date: September 01, 2020 Subjective Patient seen and examined, chart reviewed. States that she has been having back and hip pain overnight but denies any cardiac complaints. Specifically denies any recurrences of her chest discomfort nor any shortness of breath, palpitations, lightheadedness, dizziness or syncope. Telemetry reviewed: Normal sinus rhythm without arrhythmia. Review of Systems Review of Systems: All systems reviewed & are unremarkable except as noted in HPI & below Physical Exam Physical Exam: General: Awake, alert and oriented x 3. No acute distress. HEENT: Normocephalic, atraumatic. Pupils equal, round and reactive to light and accommodation. Extraocular muscles are intact. Anicteric sclera. Moist mucous membranes. Neck: No JVD. No bruit. Cardiovascular: Regular. Positive S-4. Normal S-1 and S-2. No S-3. No murmurs or rubs. Pulmonary: Clear to auscultation B/L. No rales, rhonchi or wheezing Abdomen: Bowel sounds x 4, soft. No rebound, guarding or tenderness. No organomegaly. Extremities: No clubbing, cyanosis or edema. +2 pedal pulses bilaterally. Skin: Warm and dry. Results & Data ([facility]) Vital Signs (Past 12 Hours) Vital Signs Temp Pulse Pulse Resp BP BP Pulse Ox 09/02/20 11:29 36.6 C 94 H 18 160/97 H 92 09/02/20 08:00 112 H 09/02/20 07:19 37.0 C 103 H 20 163/116 H 99 09/02/20 04:17 36.4 C L 91 H 18 152/92 H 99 Pulse Ox 09/02/20 11:29 09/02/20 08:00 99 09/02/20 07:19 09/02/20 04:17
[2020-09-02] MEDS: METOPROLOL TARTRATE 100 MG TAB PO SCH (20:02)
[2020-09-02] MEDS ORDERED: LORazepam 0.5 MG TAB PO PRN (21:42)
[2020-09-03] MEDS: CYCLOBENZAPRINE HCL 5 MG TAB PO PRN ×2 (01:44→08:27)
[2020-09-03] MEDS: HYDROCODONE/ACETAMOPHEN 5/325MG TAB PO PRN ×4 (05:03→21:52)
[2020-09-03] MEDS: PANTOprazole 40 MG TAB PO SCH (05:03)
[2020-09-03] MEDS: ASPIRIN 81 MG ECTAB PO SCH (08:26)
[2020-09-03] MEDS: FOLIC ACID 1 MG TAB PO SCH (08:26)
[2020-09-03] MEDS: MECLIZINE HCL 25 MG TAB PO SCH ×3 (08:27→19:41)
[2020-09-03] MEDS: CHOLECALCIFEROL 1,000 UNITS 25 MCG TAB PO SCH (08:27)
[2020-09-03] MEDS: THIAMINE HCL 100 MG TAB PO SCH (08:27)
[2020-09-03] MEDS: CEROVITE ADV FORMULA TAB PO SCH (08:27)
[2020-09-03] MEDS: DOCUSATE SODIUM 100 MG CAP PO SCH ×2 (08:28→19:40)
[2020-09-03] MEDS: LOSARTAN POTASSIUM 50 MG TAB PO SCH (08:30)
[2020-09-03] MEDS: CLOPIDOGREL BISULFATE 75 MG TAB PO SCH (08:30)
[2020-09-03] MEDS: METOPROLOL TARTRATE 100 MG TAB PO SCH ×2 (08:30→19:41)
[2020-09-03] MEDS: APIXABAN 5 MG TABLET PO SCH ×2 (08:30→19:41)
[2020-09-03] MEDS: NICOTINE 21 MG/24 HR TDSY TD SCH (08:31)
[2020-09-03] MEDS: ATORVASTATIN 40 MG TAB PO SCH (08:31)
[2020-09-03] MEDS: UREA (URE-NA) 15 GM PACK PO SCH (08:31)
[2020-09-03] MEDS: LIDOCAINE 5% 1 PATCH TD SCH (08:32)
[2020-09-03 08:41] LABS: Hematocrit (blood only) 28.2 % (37-47); Hemoglobin 9.7 g/dL (12.0-16.0); Mean Corpuscular Hemoglobin 34.5 pg (25-34); Mean Corpuscular Hgb Conc 34.4 g/dL (32-36); Mean Corpuscular Volume 100.4 fL (80-100); Mean Platelet Volume 8.5 fL (7.4-10.4); Platelet Count 474 K/uL (130-400); RDW Coefficient of Variation 13.2 % (11.5-14.5); RDW Standard Deviation 48.7 fL (36.4-46.3); Red Blood Count 2.81 M/uL (4.2-5.4); White Blood Count 8.59 K/uL (4.8-10.8)
[2020-09-03 08:59] LABS: BUN Creatinine Ratio 26.6 (10-20); Calcium 9.3 mg/dl (8.5-10.1); Creatinine Clr Calc Pharmacy 55.7 ml/min; Est GFR (African American) 79.3; Est GFR (Non-African American) 68.5; Potassium 3.9 mmol/L (3.5-5.1)
--- NOTE | 2020-09-03 10:15 | Hospitalist Progress Note ---
Date of Service September 03, 2020 Assessment & Plan (1) ACS (acute coronary syndrome): 70yo F with a PMH of HTN, paroxysmal A Fib, vertigo, chronic hyponatremia, recent fall with hip fracture s/p repair and other medical problems listed below who was brought in from [facility] as a heart alert Heart alert with transient inferior ST elevations who is s/p single DEX to mid- RCA by Dr. Ritter Loaded with clopidogrel 600 mg in Human Services Case Manager Discussed with Electorate Officer who recommend continuing triple therapy with Aspirin, clopidogrel and apixaban with plan to discontinue aspirin in 2-4 weeks and then continue clopidogrel and apixaban Will need clopidogrel, apixaban for at least 1 year Echo noted mod conc LVH, mild hypokinesis of inferior and inferior septal rubio, EF 55-60%, Grade III DD Continue atorvastatin Continue metoprolol [id number] bid Electorate Officer on board (2) Paroxysmal A-fib: Developed in postoperative setting after hip fracture repair 2 weeks ago Continue po lopressor bid (3) Chronic hyponatremia: From SIADH Sodium baseline 129. Na is 125 today Continue to monitor with daily BMP Continue fluid restriction and po urea Na (4) HTN (hypertension): Continue losartan Amlodipine was added yesterday for better control (5) Hip fracture requiring operative repair: Recent surgical repair at [facility] 2 weeks ago Fall precautions Flexeril increased to 10mg tid prn muscle spasms Patient encouraged to OOB and increase activity Continue norco and lidocaine patch PT/OT (6) Vertigo: Continue Meclizine Fall precautions Needs to follow up with balance center on discharge Possible UTI Get UA and UCx Start empirical ceftriaxone for now DVT Ppx: Eliquis Code status: FULL Admission and Anticipated Discharge Date Admission Date: September 01, 2020 Subjective Patient seen and examined. Denies any chest pain, shortness of breath, cough Denies any headache, dizziness Denies any nausea, vomiting, abdominal pain, diarrhea constipation Reports some dysuria and frequency. No hematuria. Reports muscle spasms involving the left leg. States that spasms makes it difficult to be active. States that she does not have as much pain as much as spasms. Physical Exam Constitutional: + well hydrated; no acute distress Eyes: PERRL, conjunctivae normal, anicteric sclerae ENMT: external ear and nose normal, oropharynx normal Respiratory: normal respiratory effort, lungs clear to auscultation Cardiovascular: Rate/Rhythm: regular rhythm and + tachycardic Heart Sounds: normal S1 and normal S2 Gastrointestinal (Abdomen): normal bowel sounds, soft, nontender, no hepatospl enomegaly Musculoskeletal: Some tenderness on palpation of left thigh Neurologic: PERRL, EOMI, accommodation nl, no face palsy, no dysarthria Psychiatric: A+Ox3, euthymic affect Results & Data Results & Data ([facility]) Vital Signs (Past 12 Hours) Vital Signs Temp Pulse Pulse Resp BP BP Pulse Ox 09/03/20 07:23 36.8 C 114 H 17 136/90 100 09/03/20 03:38 36.6 C 90 18 120/78 99 09/02/20 23:51 36.7 C 91 H 18 121/80 96 09/02/20 23:00 86 Laboratory Results Laboratory Results - last 24 hr 09/03/20 09/03/20 08:31 08:31 WBC 8.59 RBC 2.81 L Hgb 9.7 L Hct 28.2 L MCV 100.4 H MCH 34.5 H MCHC 34.4 RDW Std Deviation 48.7 H RDW Coeff of Luis 13.2 Plt Count 474 H MPV 8.5 Sodium 125 L Potassium 3.9 Chloride 97 L Carbon Dioxide 18 L Anion Gap 11.0 BUN 23 H D Creatinine 0.87 Est Cr Clr Drug Dosing 55.7 Est GFR ( Amer) 79.3 Est GFR (Non-Af Amer) 68.5 BUN/Creatinine Ratio 26.6 H Glucose 129 H Calcium 9.3
--- NOTE | 2020-09-03 13:35 | Cardiology Progress Note ---
Date of Service September 03, 2020 Assessment & Plan (1) ACS (acute coronary syndrome): Patient is a 70-year-old female presented with acute coronary syndrome with chest pain tachypalpitations and transient ST elevation. She was taken to the Digestion Operator and underwent coronary invention of the mid right coronary artery with drug-eluting stent successfully. Patient without prior history of known coronary disease but history of longstanding hypertension as well as recently observed paroxysmal atrial fibrillation in the postoperative setting. Patient anticoagulated with apixaban Recommendations as previously outlined by Dr. Ritter. Plan clopidogrel plus apixaban for anticoagulant and antiplatelet therapy. Discontinue aspirin 2-4 weeks No recurrences of chest discomfort. Is having significant vertigo symptoms and I will take the liberty of asking physical therapy colleagues to evaluate for Hallpike and Lizet maneuvers. Vital signs now well controlled, continue current medications. Okay to DC to home from a cardiac standpoint. Patient has scheduled follow-up with [facility] cardiology [place] on 09/22/2020 (2) Paroxysmal A-fib: (3) HTN (hypertension): (4) Chronic hyponatremia: Admission and Anticipated Discharge Date Admission Date: September 01, 2020 Subjective Patient seen and examined, chart reviewed. States that she has been having back and hip pain overnight but denies any cardiac complaints. Specifically denies any recurrences of her chest discomfort nor any shortness of breath, palpitations. She is having very significant dizziness secondary to her vertigo. Telemetry reviewed: Normal sinus rhythm without arrhythmia. Review of Systems Review of Systems: All systems reviewed & are unremarkable except as noted in HPI & below Physical Exam Physical Exam: General: Awake, alert and oriented x 3. No acute distress. HEENT: Normocephalic, atraumatic. Pupils equal, round and reactive to light and accommodation. Extraocular muscles are intact. Anicteric sclera. Moist mucous membranes. Neck: No JVD. No bruit. Cardiovascular: Regular. Positive S-4. Normal S-1 and S-2. No S-3. No murmurs or rubs. Pulmonary: Clear to auscultation B/L. No rales, rhonchi or wheezing Abdomen: Bowel sounds x 4, soft. No rebound, guarding or tenderness. No organomegaly. Extremities: No clubbing, cyanosis or edema. +2 pedal pulses bilaterally. Skin: Warm and dry. Results & Data ([facility]) Vital Signs (Past 12 Hours) Vital Signs Temp Pulse Pulse Resp BP Pulse Ox 09/03/20 11:35 36.6 C 92 H 17 116/76 98 09/03/20 08:00 70 09/03/20 07:23 36.8 C 114 H 17 136/90 100 09/03/20 03:38 36.6 C 90 18 120/78 99
[2020-09-03] MEDS: CYCLOBENZAPRINE HCL 10 MG TAB PO PRN ×2 (14:34→21:52)
[2020-09-03] MEDS ORDERED: Nursing to Pharmacy Communication SCH (18:00)
[2020-09-03 18:45] LABS: Appearance Urine Clear (Clear); Bacteria Urine Automated Negative (Negative); Bilirubin Urine Negative (Negative); Blood Urine 1+ (Negative); Cast Urine Automated 0 /lpf (0-5); Color Urine Yellow; Epithelial Cell Urine Auto 0-5 /lpf (0-5); Glucose Urine UA Negative (Negative); Ketones Urine Negative (Negative); Leukocyte Esterase Urine Negative (Negative); Nitrite Urine Negative (Negative); Protein Urine Negative (Negative); Specific Gravity Urine 1.017 (1.000-1.030); Urobilinogen Urine Negative (Negative); WBC Urine Automated 0 /hpf (0-5); pH Urine 6.5 (4.5-7.5)
[2020-09-03] MEDS: cefTRIAXone SODIUM 1,000 MG in DEXTROSE 5% 50 ML IV SCH (19:42)
[2020-09-04] MEDS: PANTOprazole 40 MG TAB PO SCH (05:35)
[2020-09-04 06:26] LABS: Hematocrit (blood only) 23.2 % (37-47); Mean Corpuscular Hemoglobin 34.3 pg (25-34); Mean Corpuscular Hgb Conc 34.5 g/dL (32-36); Mean Corpuscular Volume 99.6 fL (80-100); Mean Platelet Volume 8.3 fL (7.4-10.4); Platelet Count 380 K/uL (130-400); RDW Coefficient of Variation 13.2 % (11.5-14.5); RDW Standard Deviation 47.6 fL (36.4-46.3); Red Blood Count 2.33 M/uL (4.2-5.4); White Blood Count 5.73 K/uL (4.8-10.8)
[2020-09-04 06:56] LABS: BUN Creatinine Ratio 34.6 (10-20); Calcium 8.6 mg/dl (8.5-10.1); Creatinine Clr Calc Pharmacy 59.1 ml/min; Est GFR (African American) 85.2; Est GFR (Non-African American) 73.5; Magnesium 1.8 mg/dl (1.8-2.4); Phosphorus 3.7 mg/dl (2.5-4.9); Potassium 3.9 mmol/L (3.5-5.1)
[2020-09-04] MEDS: NICOTINE 21 MG/24 HR TDSY TD SCH (08:05)
[2020-09-04] MEDS: LIDOCAINE 5% 1 PATCH TD SCH (08:07)
[2020-09-04] MEDS: CLOPIDOGREL BISULFATE 75 MG TAB PO SCH (08:08)
[2020-09-04] MEDS: THIAMINE HCL 100 MG TAB PO SCH (08:08)
[2020-09-04] MEDS: ASPIRIN 81 MG ECTAB PO SCH (08:08)
[2020-09-04] MEDS: CHOLECALCIFEROL 1,000 UNITS 25 MCG TAB PO SCH (08:08)
[2020-09-04] MEDS: LOSARTAN POTASSIUM 50 MG TAB PO SCH (08:08)
[2020-09-04] MEDS: DOCUSATE SODIUM 100 MG CAP PO SCH ×2 (08:08→20:14)
[2020-09-04] MEDS: CEROVITE ADV FORMULA TAB PO SCH (08:08)
[2020-09-04] MEDS: APIXABAN 5 MG TABLET PO SCH ×2 (08:09→20:14)
[2020-09-04] MEDS: FOLIC ACID 1 MG TAB PO SCH (08:09)
[2020-09-04] MEDS: MECLIZINE HCL 25 MG TAB PO SCH ×3 (08:09→20:13)
[2020-09-04] MEDS: ATORVASTATIN 40 MG TAB PO SCH (08:09)
[2020-09-04] MEDS: METOPROLOL TARTRATE 100 MG TAB PO SCH ×2 (08:09→20:13)
[2020-09-04] MEDS: UREA (URE-NA) 15 GM PACK PO SCH (08:09)
[2020-09-04] MEDS: CYCLOBENZAPRINE HCL 10 MG TAB PO PRN ×2 (08:22→22:50)
[2020-09-04] MEDS: HYDROCODONE/ACETAMOPHEN 5/325MG TAB PO PRN ×3 (10:03→20:10)
--- NOTE | 2020-09-04 10:56 | Hospitalist Progress Note ---
Date of Service September 04, 2020 Assessment & Plan (1) ACS (acute coronary syndrome): 70yo F with a PMH of HTN, paroxysmal A Fib, vertigo, chronic hyponatremia, recent fall with hip fracture s/p repair and other medical problems listed below who was brought in from [facility] as a heart alert Heart alert with transient inferior ST elevations who is s/p single DEX to mid- RCA by Dr. Ritter Loaded with clopidogrel 600 mg in Shell Core And Molding Supervisor Discussed with It Analyst who recommend continuing triple therapy with Aspirin, clopidogrel and apixaban with plan to discontinue aspirin in 2-4 weeks and then continue clopidogrel and apixaban Will need clopidogrel, apixaban for at least 1 year Echo noted mod conc LVH, mild hypokinesis of inferior and inferior septal rubio, EF 55-60%, Grade III DD Continue atorvastatin Continue metoprolol [id number] bid Patient will follow up with cardiology on discharge (2) Paroxysmal A-fib: Developed in postoperative setting after hip fracture repair 2 weeks ago Continue po lopressor bid (3) Chronic hyponatremia: From SIADH Sodium baseline 129. Na is at baseline today Continue to monitor with daily BMP Continue fluid restriction and po urea Na (4) HTN (hypertension): Continue losartan Amlodipine was added this admission for better control (5) Hip fracture requiring operative repair: Recent surgical repair at [facility] 2 weeks ago Fall precautions Flexeril was increased to 10mg tid prn muscle spasms Continue norco and lidocaine patch Patient was on flexeril at home before fall/fracture and hospitalization at [facility] This was reduced to 5mg tid prn to minimize additive effect to her occasional dizziness. Flexeril has been increased to home dose I think patient may be more anxious about activity with her intermittent vertigo/fall than real pain I will appreciate Pain management evaluation and recommendations if possible Will continue to encourage patient to participate in activity such as OOB to chair with assistance (6) Vertigo: Continue Meclizine Fall precautions Needs to follow up with balance center on discharge Possible UTI Reported dysuria yesterday UA does not suggest UTI Will follow up Urine culture. Continue empiric ceft for now Dysuria reported before may also be due to irritation from dutta she had briefly on admission DVT Ppx: Eliquis Code status: FULL Admission and Anticipated Discharge Date Admission Date: September 01, 2020 Subjective Patient seen and examined Patient has not been doing much activity. She complains of left leg spasms and pain from spasm as well as left hip pain She had urinary retention yesterday and had dutta placed overnight No fevers, chlls No nausea, vomiting No abd pain, diarrhea, constipation Reports chronic vertigo No chest pain, cough, shortness of breath Physical Exam Constitutional: + well hydrated; no acute distress Eyes: PERRL, conjunctivae normal, anicteric sclerae ENMT: external ear and nose normal, oropharynx normal Respiratory: normal respiratory effort, lungs clear to auscultation Cardiovascular: Rate/Rhythm: regular rate and regular rhythm Heart Sounds: normal S1 and normal S2 No pedal edema Gastrointestinal (Abdomen): normal bowel sounds, soft, nontender, no hepatosplenomegaly Musculoskeletal: No leg edema. Mild tenderness on palpation and passive ROM of left LE Neurologic: PERRL, EOMI, accommodation nl, no face palsy, no dysarthria Psychiatric: A+Ox3, euthymic affect Results & Data Results & Data ([facility]) Vital Signs (Past 12 Hours) Vital Signs Temp Pulse Pulse Resp BP Pulse Ox 09/04/20 09:00 102 H 09/04/20 07:42 37.0 C 117 H 18 121/78 99 09/04/20 03:12 36.8 C 85 17 113/76 99 09/04/20 00:14 85 Laboratory Results Laboratory Results - last 24 hr 09/03/20 09/04/20 09/04/20 18:28 06:19 06:19 WBC 5.73 RBC 2.33 L Hgb 8.0 L Hct 23.2 L MCV 99.6 MCH 34.3 H MCHC 34.5 RDW Std Deviation 47.6 H RDW Coeff of Luis 13.2 Plt Count 380 MPV 8.3 Sodium 129 L Potassium 3.9 Chloride 99 Carbon Dioxide 21 Anion Gap 9.0 BUN 28 H Creatinine 0.82 Est Cr Clr Drug Dosing 59.1 Est GFR ( Amer) 85.2 Est GFR (Non-Af Amer) 73.5 BUN/Creatinine Ratio 34.6 H Glucose 93 Calcium 8.6 Phosphorus 3.7 Magnesium 1.8 Urine Color Yellow Urine Appearance Clear Urine pH 6.5 Ur Specific [place] 1.017 Urine Protein Negative Urine Glucose (UA) Negative Urine Ketones Negative Urine Blood 1+ H Urine Nitrite Negative Urine Bilirubin Negative Urine Urobilinogen Negative Ur Leukocyte Esterase Negative Urine WBC (Auto) 0 Urine RBC (Auto) 5-10 H U Hyaline Cast (Auto) 0 U Epithel Cells (Auto) 0-5 Urine Bacteria (Auto) Negative
[2020-09-04] MEDS: cefTRIAXone SODIUM 1,000 MG in DEXTROSE 5% 50 ML IV SCH (20:16)
[2020-09-05] MEDS: HYDROCODONE/ACETAMOPHEN 5/325MG TAB PO PRN ×3 (06:04→19:49)
[2020-09-05] MEDS: PANTOprazole 40 MG TAB PO SCH (06:04)
[2020-09-05] MEDS: CYCLOBENZAPRINE HCL 10 MG TAB PO PRN (06:05)
[2020-09-05 07:55] LABS: Hematocrit (blood only) 25.5 % (37-47); Hemoglobin 8.9 g/dL (12.0-16.0); Mean Corpuscular Hemoglobin 34.8 pg (25-34); Mean Corpuscular Hgb Conc 34.9 g/dL (32-36); Mean Corpuscular Volume 99.6 fL (80-100); Mean Platelet Volume 8.6 fL (7.4-10.4); Platelet Count 383 K/uL (130-400); RDW Coefficient of Variation 12.9 % (11.5-14.5); RDW Standard Deviation 46.8 fL (36.4-46.3); Red Blood Count 2.56 M/uL (4.2-5.4); White Blood Count 5.92 K/uL (4.8-10.8)
[2020-09-05] MEDS: NICOTINE 21 MG/24 HR TDSY TD SCH (08:18)
[2020-09-05] MEDS: ATORVASTATIN 40 MG TAB PO SCH (08:21)
[2020-09-05] MEDS: CHOLECALCIFEROL 1,000 UNITS 25 MCG TAB PO SCH (08:21)
[2020-09-05] MEDS: METOPROLOL TARTRATE 100 MG TAB PO SCH ×2 (08:21→19:50)
[2020-09-05] MEDS: CLOPIDOGREL BISULFATE 75 MG TAB PO SCH (08:21)
[2020-09-05] MEDS: CEROVITE ADV FORMULA TAB PO SCH (08:22)
[2020-09-05] MEDS: FOLIC ACID 1 MG TAB PO SCH (08:22)
[2020-09-05] MEDS: THIAMINE HCL 100 MG TAB PO SCH (08:22)
[2020-09-05] MEDS: MECLIZINE HCL 25 MG TAB PO SCH ×3 (08:22→19:51)
[2020-09-05] MEDS: LOSARTAN POTASSIUM 50 MG TAB PO SCH (08:22)
[2020-09-05] MEDS: ASPIRIN 81 MG ECTAB PO SCH (08:22)
[2020-09-05] MEDS: APIXABAN 5 MG TABLET PO SCH ×2 (08:23→19:49)
[2020-09-05] MEDS: DOCUSATE SODIUM 100 MG CAP PO SCH ×2 (08:23→19:51)
[2020-09-05] MEDS: LIDOCAINE 5% 1 PATCH TD SCH (08:24)
[2020-09-05] MEDS: UREA (URE-NA) 15 GM PACK PO SCH (08:24)
[2020-09-05 08:25] LABS: BUN Creatinine Ratio 30.8 (10-20); Calcium 9.1 mg/dl (8.5-10.1); Creatinine Clr Calc Pharmacy 55.7 ml/min; Est GFR (African American) 79.3; Est GFR (Non-African American) 68.5; Magnesium 1.8 mg/dl (1.8-2.4); Phosphorus 3.3 mg/dl (2.5-4.9); Potassium 3.8 mmol/L (3.5-5.1)
--- NOTE | 2020-09-05 09:02 | Pain Management Consultation ---
Date of Consultation September 05, 2020 Assessment & Plan (1) Hip fracture requiring operative repair: (2) Left hip pain: (3) ACS (acute coronary syndrome): * Patient approximately 3 weeks status post a fall with hip fracture and subsequent ORIF of left hip with ongoing left hip pain in the postoperative setting. Recommend she continue with hydrocodone 5/325 mg for as needed breakthrough pain. * Will discontinue cyclobenzaprine and initiate a trial of baclofen 10 mg 3 times daily for her complaints of lower extremity spasm * Recommend patient continue involvement with PT/OT * No apparent need for further diagnostic imaging. Patient is a poor candidate for any interventional treatment due to her ACS and antiplatelet therapies Thank you for allowing us to participate in the care of Mrs. Choe History of Present Illness Reason for Consultation: Left hip pain status post ORIF and lower extremity pain/spasm Requesting Physician: Ling Chang MD Attending Physician: Ling Pan MD History of Present Illness Mrs. Choe is a 70-year white female who was admitted from inpatient rehab setting due to acute coronary syndrome and was found to have inferior wall STEMI and did undergo cardiac catheterization. Patient has past medical history significant for hypertension, paroxysmal A. fib, vertigo and chronic hyponatremia. The patient is being managed medically at this time with aspirin, clopidogrel and apixaban. Pain service was consulted due to left-sided hip pain status post ORIF as the patient suffered a fall 3 weeks ago with fracture. The patient underwent repair of the fracture and was residing at [facility] for inpatient rehab stay when she developed chest pain which led to this admission. The patient reports that her left-sided hip pain is a 5-10/10. Patient reports chronic utilization of hydrocodone/APAP 5/325 mg in the outpatient setting 0-4 times daily without any recent change in frequency of utilization. Patient feels that hydrocodone is effective at controlling her pain. She further reports difficulties with lower extremity nondermatomal pain which she describes as [id number] with spasming/shaking of the legs. Patient indicates this is been a chronic problem as well but appears to be accentuated upon this admission. She relates this to her prior diagnosis of fibromyalgia. Patient reports increased spasm/aching even when somebody "gets close to her legs". She does have history of anxiety. She denies a true radicular pattern to these pain complaints. She has been on cyclobenzaprine chronically with benefit. She reports prior imaging of the lumbar spine has revealed lumbar disc herniations. She has not followed with neurology per her report. Patient indicates she is prescribed hydrocodone chronically by Dr. Etienne who is her PCP. Patient reports chronic vertigo which led to her recent fall causing the hip fracture with subsequent ORIF. Patient denies bowel or bladder incontinence or saddle anesthesias. She denies any axial low back pain at this time. Her hip pain is localized to the hip joint region. Plan of care discussed with Dr. Olga Lidia Sanford. Pain Assessment Full Body Front + Back: 1. Left hip 2. Nondermatomal right lower extremity pain/spasm 3. Nondermatomal left lower extremity pain/spasm Pain scale - at its best (0-10): 5 Pain scale - at its worst (0-10): 10 Allergies Allergy/AdvReac Type Severity Reaction Status Date / Time No Known Allergies Allergy Unverified 09/01/20 08:43 Home Medications Medication Instructions Recorded Confirmed Type apixaban 5 mg PO BID 09/01/20 09/01/20 History cholecalciferol (vitamin D3) 50 mcg PO QAM 09/01/20 09/01/20 History [Vitamin D3] cyclobenzaprine 5 mg PO TID PRN 09/01/20 09/01/20 History diltiazem HCl 360 mg PO QAM 09/01/20 09/01/20 History docusate sodium 100 mg PO BID 09/01/20 09/01/20 History folic acid 1 mg PO QAM 09/01/20 09/01/20 History hydrocodone-acetaminophen 1 tab PO Q4H PRN 09/01/20 09/01/20 History lidocaine [Lidoderm] 2 patch TOPICAL QAM 09/01/20 09/01/20 History lorazepam 1 mg PO HS PRN 09/01/20 09/01/20 History losartan 100 mg PO QAM 09/01/20 09/01/20 History meclizine 25 mg PO TID 09/01/20 09/01/20 History metoprolol tartrate 75 mg PO Q12H 09/01/20 09/01/20 History multivitamin with minerals 1 tab PO QAM 09/01/20 09/01/20 History naloxone 4 mg INTRANASAL UD 09/01/20 09/01/20 History nicotine 1 patch TRANSDERMAL QAM 09/01/20 09/01/20 History omega 1-pwl-enl-fish oil [Fish Oil] 1 cap PO TID 09/01/20 09/01/20 History pantoprazole 40 mg PO DAILYBB 09/01/20 09/01/20 History thiamine HCl (vitamin B1) 100 mg PO QAM 09/01/20 09/01/20 History urea 1 packet PO QAM 09/01/20 09/01/20 History Pain History Pain Intensity Pain scale - at its best (0-10): 5 Pain scale - at its worst (0-10): 10 Patient History Medical History Chronic hyponatremia Hip fracture requiring operative repair HTN (hypertension) Paroxysmal A-fib Vertigo Surgical History Closed hip fracture requiring operative repair S/P cholecystectomy Family History Other Hypertension Social History Smoking Status: Former smoker Smoking End Date: 08/14/2020; Hx Alcohol Use: Yes Alcohol type: wine Alcohol Intake Frequency: 4 or More x per/Week Hx Substance Use: No Preferred Language: Citizen Of [place] Communication Ability: Effective Hospice Clinical Manager Required: No Beliefs That Will Affect Care: None Current Living Situation: Rehab Current Living Situation Comment: Recent orthopedic insult Feels Safe at Home: Yes Safety Concerns: Feels Safe At This Time Assistive Devices: Walker Physical Exam Physical Exam: General: Patient sitting quietly in exam room in no acute distress. Speech and thought process appropriate. Mood and affect appropriate. Cognition intact. Head: Normocephalic and atraumatic. ENT: No evidence of nasal or oral mucosal lesions. Mucous membranes are moist. Eyes: Pupils equal round reactive to light. Neck: Supple without adenopathy and full range of motion. Chest: Nontender to palpation of the costosternal junction. Abdomen: Soft and nondistended. No organomegaly. Bowel sounds active. Back/spine: Loss of lordosis. Nontender over the midline. Nontender in the paravertebral musculature. No focal facet or SI joint tenderness. Lower extremities: Bandage over the left lateral hip which was not removed for visual inspection. Minimal manipulation of the hip at today's visit-minimal discomfort was appreciated. There is no evidence of edema or erythema. She is minimally tender along the IT band. Patient has a dressing in place in the distal lateral thigh proximal to the knee at site of a prior drain. Strength testing was 5/5 with dorsi and plantar flexion. Sensation was intact. She is generally tender over the ankle region to direct outpatient. Patient developed some involuntary spasm/aching of the foot and lower extremity during strength testing and palpation. Neurologic: Cranial nerves grossly intact. Ambulatory function not witnessed.
[2020-09-05] MEDS: BACLOFEN 10 MG TAB PO SCH ×3 (09:37→19:50)
--- NOTE | 2020-09-05 10:29 | Hospitalist Progress Note ---
Date of Service September 05, 2020 Assessment & Plan (1) ACS (acute coronary syndrome): 70yo F with a PMH of HTN, paroxysmal A Fib, vertigo, chronic hyponatremia, recent fall with hip fracture s/p repair and other medical problems listed below who was brought in from [facility] as a heart alert Heart alert with transient inferior ST elevations who is s/p single DEX to mid- RCA by Dr. Ritter Inferior Wall NSTEMI Was loaded with clopidogrel 600 mg in Clinical Evaluator Echo noted mod conc LVH, mild hypokinesis of inferior and inferior septal rubio, EF 55-60%, Grade III DD Continue atorvastatin Continue metoprolol [id number] bid Patient will follow up with cardiology on discharge Discussed with Mat Inspector who recommend continuing triple therapy with Aspirin, clopidogrel and apixaban with plan to discontinue aspirin in 2-4 weeks and then continue clopidogrel and apixaban Will need clopidogrel, apixaban for at least 1 year (2) Paroxysmal A-fib: Developed in postoperative setting after hip fracture repair 3 weeks ago Continue po lopressor bid. Was increased to 100mg bid during this admission (3) Chronic hyponatremia: From [facility] Sodium baseline 129. Na is at baseline today Continue to monitor with daily BMP Continue fluid restriction and po urea Na (4) HTN (hypertension): Continue losartan Amlodipine was added this admission for better control (5) Hip fracture requiring operative repair: Recent surgical repair at [facility] 3 weeks ago Fall precautions Patient was on flexeril at home before fall/fracture and hospitalization at [facility] This was reduced to 5mg tid prn to minimize additive effect to her occasional dizziness. Flexeril had been increased to home dose without much relief I think patient may be more anxious about activity with her intermittent vertigo/fall. We discussed about this. She acknowledges she is afraid of falling when they try to get her out of bed. She stated she will try today to allow RN/PT get her more active However, she does have muscle spasms Pain management recommendations appreciated. Flexeril discontinued. Started on baclofen (6) Vertigo: Continue Meclizine Fall precautions Needs to follow up with balance center on discharge UTI Reported dysuria 2 days ago Urine culture growing strep Continue empiric ceft for now and follow up sensitivities Also had urinary retention. Will discontinue dutta today and monitor DVT Ppx: Eliquis Code status: FULL Admission and Anticipated Discharge Date Admission Date: September 01, 2020 Subjective Patient seen and examined Still reports persistent spasms and cramps in the legs especially in the left leg despite decreasing the dose of Flexeril Patient has not been getting out of bed to chair as much due to the spasms and afraid of falling No chest pain, cough, shortness of breath No headache, dizziness, blurry vision No abdominal pain, nausea, vomiting, diarrhea Has Dutta in situ. No focal weakness, numbness Physical Exam Constitutional: + well hydrated; no acute distress Eyes: PERRL, conjunctivae normal, anicteric sclerae ENMT: external ear and nose normal, oropharynx normal Respiratory: normal respiratory effort, lungs clear to auscultation Cardiovascular: Rate/Rhythm: regular rate and regular rhythm Heart Sounds: normal S1 and normal S2 Gastrointestinal (Abdomen): normal bowel sounds, soft, nontender, no hepatosplenomegaly Musculoskeletal: No tenderness on palpation Has some spasms with active range of motion of lower extremity against resistance Neurologic: PERRL, EOMI, accommodation nl, no face palsy, no dysarthria Psychiatric: A+Ox3, euthymic affect Genitourinary: Dutta in situ Results & Data Results & Data ([facility]) Vital Signs (Past 12 Hours) Vital Signs Temp Pulse Resp BP Pulse Ox 09/05/20 08:17 36.5 C 88 16 110/72 09/05/20 03:40 36.9 C 87 19 110/72 100 09/05/20 00:03 36.9 C 78 18 107/71 99 Laboratory Results Laboratory Results - last 24 hr 09/05/20 09/05/20 07:37 07:37 WBC 5.92 RBC 2.56 L Hgb 8.9 L Hct 25.5 L MCV 99.6 MCH 34.8 H MCHC 34.9 RDW Std Deviation 46.8 H RDW Coeff of Luis 12.9 Plt Count 383 MPV 8.6 Sodium 129 L Potassium 3.8 Chloride 100 Carbon Dioxide 21 Anion Gap 8.0 BUN 27 H Creatinine 0.87 Est Cr Clr Drug Dosing 55.7 Est GFR ( Amer) 79.3 Est GFR (Non-Af Amer) 68.5 BUN/Creatinine Ratio 30.8 H Glucose 91 Calcium 9.1 Phosphorus 3.3 Magnesium 1.8
[2020-09-05] MEDS: cefTRIAXone SODIUM 1,000 MG in DEXTROSE 5% 50 ML IV SCH (21:12)
[2020-09-06] MEDS: PANTOprazole 40 MG TAB PO SCH (05:57)
[2020-09-06] MEDS: MECLIZINE HCL 25 MG TAB PO SCH ×2 (07:48→14:01)
[2020-09-06] MEDS: CLOPIDOGREL BISULFATE 75 MG TAB PO SCH (07:49)
[2020-09-06] MEDS: CHOLECALCIFEROL 1,000 UNITS 25 MCG TAB PO SCH (07:50)
[2020-09-06] MEDS: CEROVITE ADV FORMULA TAB PO SCH (07:50)
[2020-09-06] MEDS: LOSARTAN POTASSIUM 50 MG TAB PO SCH (07:50)
[2020-09-06] MEDS: ASPIRIN 81 MG ECTAB PO SCH (07:51)
[2020-09-06] MEDS: ATORVASTATIN 40 MG TAB PO SCH (07:51)
[2020-09-06] MEDS: THIAMINE HCL 100 MG TAB PO SCH (07:51)
[2020-09-06] MEDS: FOLIC ACID 1 MG TAB PO SCH (07:51)
[2020-09-06] MEDS: BACLOFEN 10 MG TAB PO SCH ×2 (07:52→14:01)
[2020-09-06] MEDS: APIXABAN 5 MG TABLET PO SCH (07:52)
[2020-09-06] MEDS: DOCUSATE SODIUM 100 MG CAP PO SCH (07:52)
[2020-09-06] MEDS: UREA (URE-NA) 15 GM PACK PO SCH (07:53)
[2020-09-06] MEDS: LIDOCAINE 5% 1 PATCH TD SCH (07:53)
[2020-09-06] MEDS: NICOTINE 21 MG/24 HR TDSY TD SCH (07:54)
[2020-09-06] MEDS: METOPROLOL TARTRATE 100 MG TAB PO SCH (07:54)
[2020-09-06] MEDS: HYDROCODONE/ACETAMOPHEN 5/325MG TAB PO PRN ×2 (08:00→12:52)
[2020-09-06 08:02] LABS: BUN Creatinine Ratio 32.9 (10-20); Calcium 9.5 mg/dl (8.5-10.1); Creatinine Clr Calc Pharmacy 58.4 ml/min; Est GFR (Non-African American) 72.5; Potassium 3.7 mmol/L (3.5-5.1)
--- NOTE | 2020-09-06 12:58 | Cardiology Progress Note ---
Date of Service September 06, 2020 Assessment & Plan (1) ACS (acute coronary syndrome): Patient is a 70-year-old female presented with acute coronary syndrome with chest pain tachypalpitations and transient ST elevation. She was taken to the [facility] and underwent coronary invention of the mid right coronary artery with drug-eluting stent successfully. Patient without prior history of known coronary disease but history of longstanding hypertension as well as recently observed paroxysmal atrial fibrillation in the postoperative setting. Patient anticoagulated with apixaban Recommendations as previously outlined by Dr. Ritter. Plan clopidogrel plus apixaban for anticoagulant and antiplatelet therapy. Discontinue aspirin 2-4 weeks No recurrences of chest discomfort. Is having significant vertigo symptoms and I will take the liberty of asking physical therapy colleagues to evaluate for Hallpike and Lizet maneuvers. Vital signs now well controlled, continue current medications. Okay to DC to home from a cardiac standpoint. Patient has scheduled follow-up with [facility] cardiology [place] on 09/22/2020 (2) Paroxysmal A-fib: (3) HTN (hypertension): (4) Chronic hyponatremia: Admission and Anticipated Discharge Date Admission Date: September 01, 2020 Subjective Patient seen and examined, chart reviewed. No complaints from a cardiac standpoint but still with significant hip and back pain. Telemetry reviewed: Normal sinus rhythm without arrhythmia or significant ectopy. Review of Systems Review of Systems: All systems reviewed & are unremarkable except as noted in HPI & below Physical Exam Physical Exam: General: Awake, alert and oriented x 3. No acute distress. HEENT: Normocephalic, atraumatic. Pupils equal, round and reactive to light and accommodation. Extraocular muscles are intact. Anicteric sclera. Moist mucous membranes. Neck: No JVD. No bruit. Cardiovascular: Regular. Positive S-4. Normal S-1 and S-2. No S-3. No murmurs or rubs. Pulmonary: Clear to auscultation B/L. No rales, rhonchi or wheezing Abdomen: Bowel sounds x 4, soft. No rebound, guarding or tenderness. No organomegaly. Extremities: No clubbing, cyanosis or edema. +2 pedal pulses bilaterally. Skin: Warm and dry. Results & Data ([facility]) Vital Signs (Past 12 Hours) Vital Signs Temp Pulse Pulse Resp BP BP Pulse Ox 09/06/20 12:05 36.9 C 118 H 16 133/69 95 09/06/20 08:11 37.0 C 120 H 18 128/84 98 09/06/20 07:17 101 H 09/06/20 03:34 36.7 C 88 18 139/84 100
--- NOTE | 2020-09-06 14:27 | Discharge Summary ---
Date of Service September 06, 2020 Admission HPI Per Admitting Provider This is a 70yo F with a PMH of HTN, paroxysmal A Fib, vertigo, chronic hyponatremia, recent fall with hip fracture s/p repair and other medical problems listed below who was brought in from [facility] as a HEART ALERT. Was recently admitted to [facility] 2 weeks ago after a fall resulting in left hip fracture s/p surgical repair. Was subsequently admitted to [facility] for rehab and has been participating in rehab. Developed chest pain yesterday during rehab that resolved overnight. Had chest tightness again this morning and EKG showed A fib with RVR in 110s. EMS was called and initial ECG revealed inferior ST elevations that resolved on subsequent ECGs. A fib had spontaneously resolved while in ED. Was taken to cardiac laboratory specialist as hear alert. Dr. Ritter performed PCI with single stent to mid-RCA lesion. Currently, patient is feeling much better.No lightheadedness or vertigo. Denies any chest pain, SOB, nausea or vomiting. No fever, chills, headache, abdominal pain, dysuria, diarrhea or constipation. Has not smoked for past 2 weeks or consumed any alcohol. Principal Diagnosis ACS Discharge Exam General: A&Ox3 HENT: NCAT, MMM, EOMI Eyes: PERRLA Neck: Supple, normal range of motion CVS: normal rate and rhythm Resp: b/l good breath sounds Abdomen: Soft, ND/NT, +BS Extremities: No c/c/e Neuro: face symmetric, strength grossly equal, no focal deficit Skin: warm and dry, no rashes/lesions/errythema MSK: normal ROM, no joint swelling/erythema Discharge Data Allergies Allergy/AdvReac Type Severity Reaction Status Date / Time No Known Allergies Allergy Unverified 09/01/20 08:43 Consultations 09/01/20 09:46 Consult Cardiac Rehabilitation Routine 09/01/20 11:19 Consult Cardiology Routine 09/04/20 10:24 Consult Pain Management Routine Procedures Performed Operation Date: 09/01/20 08:30 Actual Procedures s Cineradiography w/Routine Exam - Federico Ritter MD p Cath, Left with Cors and Vent - Federico Ritter MD p Aspiration/PCI w/ROSALVA for Stemi - Federico Ritter MD Ordered Studies 09/01/20 08:26 CL Cath Imgs for PACS use only Stat CL Cath Imgs for PACS use only Stat Hospital Course (1) ACS (acute coronary syndrome): 70yo F with a PMH of HTN, paroxysmal A Fib, vertigo, chronic hyponatremia, recent fall with hip fracture s/p repair and other medical problems listed below who was brought in from [facility] as a heart alert Heart alert with transient inferior ST elevations who is s/p single DEX to mid- RCA by Dr. Ritter. Inferior Wall NSTEMI Echo noted mod conc LVH, mild hypokinesis of inferior and inferior septal rubio, EF 55-60%, Grade III DD Cardiology recommended to discharge patient on apixaban and Plavix for at least 1 year and aspirin for at least 2 to 4 weeks. Continue Lopressor milligrams twice daily. She will need to follow-up with cardiology as an outpatient. (2) Paroxysmal A-fib: Developed in postoperative setting after hip fracture repair 3 weeks ago Continue po lopressor bid. Was increased to 100mg bid during this admission. F/U with cardiology as an OP. (3) Chronic hyponatremia: From [facility] Sodium baseline 129. 130 on the day of discharge. (4) HTN (hypertension): Continue losartan. Continue to monitor blood pressure for adjustment of regimen. (5) Hip fracture requiring operative repair: Recent surgical repair at [facility] 3 weeks ago Fall precautions Pain management was consulted and they recommendation d/c Flexeril and start on on baclofen (6) Vertigo: Continue Meclizine Fall precautions Needs to follow up with balance center on discharge. UTI Patient reported dysuria, however, cultures were negative. Antibiotics were discontinued at discharge. Total Time Total Time Spent Total Time Spent (In Minutes): 35 Discharge Plan Discharge Items Patient Disposition: Transfer Longterm Fac Reason For Visit: HEART ALERT Discharge Diagnosis: ACS Activity: Resume your previous activity Non-emergency contact: Primary Care Provider Call non-emergency contact if: your symptoms worsen Follow-up/Referrals: [facility] [Primary Care Provider] - Diet: Heart Healthy Addtl Attending Provider Instructions: Patient will need to follow-up with cardiology as an outpatient. An appointment is already scheduled. Continue with apixaban and Plavix for at least 1 year as per cardiology. Continue with aspirin for at least 3 more weeks. Pending Studies at Discharge: No Stand-Alone Forms: My [facility] Skilled Items Patient informed of condition?: Yes DNR: No Discharge Level of Care: Skilled Communicable Disease: No Discharge Prognosis: Stable Lines: None Urinary Catheter: No Medications and DC Order Prescriptions: New atorvastatin 40 mg Tablet 80 mg PO QAM Qty: 30 RF: 0 metoprolol tartrate 100 mg Tablet 100 mg PO BID Qty: 60 RF: 0 clopidogrel 75 mg Tablet 75 mg PO QAM Qty: 30 RF: 0 aspirin 81 mg Tablet,Delayed Release (Dr/Ec) 81 mg PO QAM Qty: 21 RF: 0 nitroglycerin [Nitrostat] 0.4 mg Tablet, Sublingual 0.4 mg sublingual PRN PRN (Reason: chest pain) Qty: 30 RF: 0 baclofen 10 mg Tablet 10 mg PO TID Qty: 20 RF: 0 Continued hydrocodone-acetaminophen 5-325 mg Tablet 1 tab PO Q4H PRN (Reason: Pain) RF: 0 thiamine HCl (vitamin B1) 100 mg Tablet 100 mg PO QAM RF: 0 meclizine 12.5 mg Tablet 25 mg PO TID RF: 0 pantoprazole 40 mg Tablet,Delayed Release (Dr/Ec) 40 mg PO DAILYBB RF: 0 lidocaine [Lidoderm] 5 % Adhesive Patch,Medicated 2 patch TOPICAL QAM RF: 0 nicotine 21 mg/24 hr Patch 24 Hour 1 patch TRANSDERMAL QAM RF: 0 docusate sodium 100 mg Capsule 100 mg PO BID RF: 0 folic acid 1 mg Tablet 1 mg PO QAM RF: 0 lorazepam 1 mg Tablet 1 mg PO HS PRN (Reason: Anxiety) RF: 0 multivitamin with minerals Tablet 1 tab PO QAM RF: 0 losartan 100 mg Tablet 100 mg PO QAM RF: 0 cholecalciferol (vitamin D3) [Vitamin D3] 50 mcg (2,000 unit) Capsule 50 mcg PO QAM RF: 0 omega 0-vme-lbt-fish oil [Fish Oil] 1,000 mg (120 mg-180 mg) Capsule 1 cap PO TID RF: 0 apixaban 5 mg Tablet 5 mg PO BID RF: 0 naloxone 4 mg/actuation Sheldon,Non-Aerosol 4 mg INTRANASAL UD RF: 0 urea 15 gram Powder In Packet 1 packet PO QAM RF: 0 Discontinued diltiazem HCl 360 mg Capsule,Extended Release 24hr 360 mg PO QAM RF: 0 metoprolol tartrate 50 mg Tablet 75 mg PO Q12H RF: 0 cyclobenzaprine 5 mg Tablet 5 mg PO TID PRN (Reason: Muscle Spasm) RF: 0 Discharge Orders: Discharge Order (Routine); Ordered 09/06/20 Ordered By: Ron Rosales Admission Data Admit Date/Time: 09/01/20 15:20 Attending Provider: Ron Rosales Admit Provider: Federico Ritter Primary Care Provider: [facility] Other Providers: Geni Pinto ; Ortiz Cullen ; Otilio Mack Other Interventions: Discharge Summary Assessment (RN) Last Done: 09/06/20 14:23
== END 2020-09-06 15:34 | DRG 247 ==
LOC: ED 08:26 → CC 08:56 → 2S 08:56 → SUATTDRO 15:20